=== PATIENT | female | born 1945 | race Caucasian/White ===

== ENCOUNTER → 2017-10-23 08:26 | Outpatient (CLI) | payer MEDICARE, OTHER, SELFPAY ==
--- NOTE | 2017-10-23 08:31 | RAD_ITS ---
STUDY: X-RAY - ESOPHAGUS (BARIUM SWALLOW) WITH FLUOROSCOPY REASON FOR EXAM: Female, 72 years old. Dysphagia for solids and tablets. TECHNIQUE: 15 view(s) of the esophagus were obtained following swallowing of barium. FLUOROSCOPY TIME (if supplied): (0:26) minutes/seconds COMPARISON: None. FINDINGS: There is no demonstrated esophageal foreign body. There is no demonstrated stricture or mucosal abnormality. Normal gastroesophageal junction, without a demonstrated hiatal hernia. The patient ingested a 12 mm tablet of barium. The tablet is trapped at the gastroesophageal junction. There is atherosclerotic tortuosity of the aortic arch and descending thoracic aorta. Normal visualized pulmonary parenchyma. Normal visualized osseous structures of the thorax. RAD/Esophagus Only IMPRESSION: The 12 mm tablet of barium is trapped at the gastroesophageal junction. Electronically Signed: Carlitos Gordon MD at 9:12 EST Tel [phone], Service support ,
== END ==
PROVIDERS: Family Provider Family Medicine; PCP Family Medicine; Visit Provider Otolaryngology
DX: R13.10 Dysphagia, unspecified (principal)
CPT/HCPCS: 74220

== ENCOUNTER → 2017-10-27 13:06 | Outpatient (CLI) | payer MEDICARE, OTHER, SELFPAY ==
--- NOTE | 2017-10-27 13:10 | RAD_ITS ---
STUDY: SWALLOWING STUDY REASON FOR EXAM: Female, 72 years old. Dysphasia. TECHNIQUE: The examination was performed with Speech Pathology in attendance. Under fluoroscopic observation, the patient ingested thin barium, thick barium, barium pudding, and barium coated cracker. FLUOROSCOPY TIME: 1:27 minutes/seconds. 845 spot images were obtained. RADIOLOGIST INVOLVEMENT: Radiologist was present and providing direct supervision. COMPARISON: None. FINDINGS: The following was observed during swallowing of the various mixtures of barium: Thin Barium: There was no evidence of aspiration or laryngeal penetration. Barium Pudding: There was no evidence of aspiration or laryngeal penetration. Barium Coated Cracker: There was no evidence of aspiration or laryngeal penetration. RAD/Swallowing Function w/Video IMPRESSION: Normal tailored barium swallow study. No evidence of increased risk for aspiration. The swallow study findings were discussed with the patient by the speech pathologist at the conclusion of the examination. Please see speech pathology report for more information and recommendations. Electronically Signed: Carlitos Gordon MD at 14:32 EST Tel [phone], Service support ,
--- NOTE | 2017-10-27 13:30 | SP.MBSS_ITS ---
PRIMARY / SECONDARY DIAGNOSIS: dysphagia (R13.10) REFERRING PHYSICIAN: Dr. Jai Breaux MD CURRENT DIET: regular textures, thin liquids DENTITION: WFL MENTAL STATUS: WNL RESPIRATORY STATUS: O2 via room air PREVIOUS MODIFIED BARIUM SWALLOW STUDY: none REASON FOR REFERRAL: Patient is a 72 year old female referred for a modified barium swallow (MBS) study to objectively assess the Patients oropharyngeal swallow function under fluoroscopy secondary to reported difficulty with PO medication administration, with the Patient reporting feelings of esophageal stasis during deglutition of multiple pills, occasional occurrences with solid textures, though has subsided prior to assessment. 10/23/2017 barium swallow study revealed trapping of the 12 mm barium tablet at the gastroesophageal junction. MEDICAL HISTORY: Gastroesophageal reflux disease, hypertension STUDY FINDINGS: Patient participated in a Modified Barium Swallow (MBS) study on 10/27/2017. Dr. Gordon was the radiologist present for this evaluation. This study was recorded in the lateral view and images were sent to PACs for storage. The following consistencies were presented to this patient for analysis of oropharyngeal swallow function: thin liquids, pudding, and a regular textured, Tomeka Doone cookie. Results of the MBS are as follows: PENETRATION / ASPIRATION SCALE (COLEY): 1 = does not enter airway 2 = enters airway/above vocal folds/ejected 3 = enters airway/above vocal folds/not ejected 4 = enters airway/contacts vocal folds/ejected 5 = enters airway/contacts vocal folds/not ejected 6 = enters airway/below vocal folds/ejected 7 = enters airway/below vocal folds/not ejected despite effort 8 = enters airway/below vocal folds/no effort PENETRATION / ASPIRATION SCALE (SCORE): Thin liquids via cup (single sip): 1 Thin liquids via cup (single sip): 1 Thin liquids via cup (sequential swallows): 1 Thin liquids via straw (single sip): 1 Thin liquids via straw (sequential swallows): 1 Pudding via spoon: 1 Regular textured cookie: 1 Thin liquids via straw (sequential swallows): 1 IMPRESSION: DIAGNOSIS: within functional limits ORAL PHASE CHARACTERIZED BY: LABIAL SEAL: no labial escape TONGUE CONTROL DURING BOLUS MANIPULATION: cohesive bolus between tongue to palatal seal BOLUS PREPARATION / MASTICATION: timely and efficient chewing and mashing BOLUS TRANSPORT / LINGUAL MOTION: brisk tongue motion ORAL RESIDUE: intermittent trace residue lining oral structures PHARYNGEAL PHASE CHARACTERIZED BY: INITIATION OF PHARYNGEAL SWALLOW: bolus head intermittently between the pyriforms and the posterior laryngeal surface of epiglottis at first hyoid excursion during thin liquid intake; bolus head in valleculae at first hyoid excursion across remaining trials. SOFT PALATE ELEVATION: no bolus between soft palate and pharyngeal wall LARYNGEAL ELEVATION: complete superior movement of thyroid cartilage with complete approximation of arytenoids cartilage to epiglottic petiole ANTERIOR HYOID EXCURSION: complete anterior movement EPIGLOTTIC MOVEMENT: complete epiglottic inversion LARYNGEAL VESTIBULE CLOSURE AT HEIGHT OF SWALLOW: complete laryngeal vestibule closure with no air/contrast in laryngeal vestibule PHARYNGEAL STRIPPING WAVE: pharyngeal stripping wave present / complete PHARYNGOESOPHAGEAL SEGMENT OPENING: complete distension and complete duration with no obstruction of flow TONGUE BASE RETRACTION: no contrast between tongue base and posterior pharyngeal wall PHARYNGEAL RESIDUE: intermittent trace residue within or on pharyngeal structures ESOPHAGEAL PHASE CHARACTERIZED BY: ESOPHAGEAL BOLUS CLEARANCE IN THE UPRIGHT POSITION: could not view EFFECTS OF TREATMENT STRATEGIES ATTEMPTED: Reduced bolus size = effective DIET TEXTURE RECOMMENDATIONS: Will recommend a regular textured, thin liquid diet. COMPENSATORY STRATEGIES RECOMMENDED: Reduced bolus volume INTERPRETATION OF RESULTS: Patient presents with swallow function grossly within functional limits. Noted pharyngeal phase impairments (delayed pharyngeal swallow onset timing) ameliorated with reduction in bolus volume, not outside normal limitations with comparison to age matched peers. RECOMMENDATIONS: Patient able to comprehend information presented upon review and express recommended intake precautions (reduced bolus volume) to suggest high likelihood of compliance. Provided brief overview of signs and symptoms of aspiration, with recommendations for the Patient to further discuss symptoms with PCP. No further skilled speech-language services warranted at this time targeting dysphagia. ADDITIONAL COMMENTS/RECOMMENDATIONS: Results and recommendations were discussed with the Patient immediately following MBS completion, with the Patient verbalizing understanding and agreement with all recommendations and education provided. IMAGE COUNT: 845 G-CODES: SWALLOWING G8996 Current Status: SWALLOWING G8997 Goal Status: SWALLOWING G8998 Discharge Status:
== END ==
PROVIDERS: Family Provider Family Medicine; PCP Family Medicine; Visit Provider Otolaryngology
DX: R13.10 Dysphagia, unspecified (principal)
CPT/HCPCS: 74230; 92611; G8996; G8997; G8998

== ENCOUNTER 2022-11-19 01:20 | Emergency (ER) | payer MEDICARE, OTHER, SELFPAY ==
[2022-11-19 01:20] VITALS: BP 104/70; PULSE 107; RESP 16; TEMP 36.6; O2SAT 97; BMI 24.3
--- NOTE | 2022-11-19 01:38 | EDS_ITS ---
HPI History of Present Illness Chief Complaint: Nausea/Vomiting/Diarrhea Informant: patient Narrative Narrative: Patient presents with nausea vomiting and diarrhea. She states this started Friday morning. She saw urgent care where it looks like she was prescribed Zofran. She has taken 2 of these. She did not think they helped a lot with nausea. She evidently saw her primary physician. She was placed on Phenergan which has helped a bit. She vomited a lot on Friday but much less since. She is still having diarrhea that is somewhat watery or poorly formed. She was taking Imodium which helped a little bit. She has not seen blood in the diarrhea. She gets intermittent abdominal cramping but has no real pain. She has no pain now. No flank pain. She denies urinary symptoms. She has history of frequent UTIs but does not feel as though she has one now. Patient did just get back from a cruise that went to the [facility] in [facility]. 5 or 6 other women that went with her all ended up getting COVID but this patient does not think she got COVID. She tested Friday morning and it was negative. I did do not know if the other people had nausea vomiting diarrhea symptoms. Patient has no history of any abdominal surgery. She has never had a fever with this. It sounds like the trend is toward improvement but her symptoms are still going on. PFSH PFSH Home Medications aspirin 81 mg chewable tablet 81 mg PO DAILY 08/24/16 [History Last Taken Unknown] celecoxib 200 mg capsule (Celebrex) 250 mg PO DAILY 08/24/16 [History Last Taken Unknown] cholecalciferol (vitamin D3) 25 mcg (1,000 unit) capsule (Vitamin D3) 1,000 unit PO DAILY 08/24/16 [History Last Taken Unknown] glucosamine sulf dipotassium Cl 250 mg-chondroitin sulf 200 mg capsule 1 ea PO DAILY 08/24/16 [History Last Taken Unknown] omeprazole magnesium 20 mg tablet,delayed release (Prilosec OTC) 20 mg PO DAILY 08/24/16 [History Last Taken Unknown] oxycodone-acetaminophen 5 mg-325 mg tablet 1 - 2 tab PO Q4H PRN PRN Pain ##15 08/24/16 [Rx Last Taken Unknown] valsartan 160 mg tablet 160 mg PO DAILY 08/24/16 [History Last Taken Unknown] Allergy/AdvReac Type Severity Reaction Status Date / Time No Known Allergies Allergy Verified 11/19/22 01:23 Social History Smoking Status: Current every day smoker tobacco type: cigarettes ROS ROS ED Constitutional Constitutional ED: Denies fever(s) or subjective ENT ENT ED: Denies rhinorrhea or sore throat Cardiovascular Cardiovascular: Denies chest pain or palpitations Respiratory/Chest Respiratory/Chest: Denies cough or dyspnea Gastrointestinal Gastrointestinal: Reports abdominal pain, diarrhea, nausea and vomiting; Denies constipation or melena Genitourinary Genitourinary ED: Denies dysuria, hematuria or urinary frequency Musculoskeletal Musculoskeletal: Reports myalgias Integumentary Denies Abrasions or rash Neurologic Neurologic: Denies paresthesias or weakness Endocrine Endocrinology: Denies polydipsia or polyuria Hematologic/Lymphatic Hematologic/Lymphatic: Reports other Details: Patient takes 1 baby aspirin every other day. ; Denies easy bleeding or easy bruising Allergic/Immunologic Allergic/Immunologic ED: Denies urticaria EXAM Physical Exam Narrative Exam Narrative: Patient is awake alert no acute distress. She is sitting comfortably on bed. She does not look toxic. HEENT shows no trauma. Mucous membranes might be just minimally dry. Eyes show no icterus or pallor Lungs are clear bilaterally Heart is regular without murmur gallop or rub. Heart rates only about 90 at this time. Abdomen is soft, does have increased bowel sounds but no distention. There is no tenderness anywhere on exam. I feel no hernias or mass. shows no CVA or suprapubic tenderness Extremities show no swelling or tenderness or asymmetry. Skin shows no rash pallor or diaphoresis. Neurologically she is awake alert and appropriate. Const Vital Signs: 11/19/22 01:20 Temperature 97.8 F Temperature Source Temporal Pulse Rate 107 H Respiratory Rate 16 Blood Pressure 104/70 Blood Pressure Mean 81 Pulse Ox 97 Oxygen Delivery Method Room Air MDM MDM MDM Narrative Medical decision making narrative: Patient CBC shows no abnormalities. Electrolytes are normal other than mild elevation in BUN and creatinine consistent with some mild dehydration. This was treated with IV fluids. Liver function test are overall unremarkable. Nonspecific elevation of the calcium and glucose. Urinalysis was clear negative leukocyte Estrace negative nitrites and the patient has no symptoms of UTI. We are pending the micro but the patient wants to go home now. Her influenza test was positive for influenza B. This is consistent with having some nausea and vomiting and diarrhea early in the illness. My suspicion is that she is getting near the end of this. She has meds for the diarrhea and nausea at home. Patient does not want to stay here any longer. She wants to go home pronto. She will be discharged to follow-up with her physician. Lab Data Attestation: I reviewed the patient's lab results. Labs: Laboratory Results - last 24 hr 11/19/22 11/19/22 11/19/22 01:55 01:55 02:50 WBC 10.9 RBC 4.77 Hgb 13.9 Hct 44.4 MCV 93.1 MCH 29.1 MCHC 31.3 L RDW Std Deviation 44.4 H RDW Coeff of Parisa 13.0 Plt Count 265 MPV 11.1 Immature Gran % (Auto) 0.400 Neut % (Auto) 74.7 H Lymph % (Auto) 15.2 L [place] % (Auto) 8.1 Eos % (Auto) 1.2 Baso % (Auto) 0.4 Absolute Neuts (auto) 8.2 H Absolute Lymphs (auto) 1.66 Nucleated RBC % 0 Sodium 136 Potassium 4.1 Chloride 104 Carbon Dioxide 25.0 Anion Gap 7 BUN 20 H Creatinine 1.13 H Estim Creat Clear Calc 37.15 Est GFR (MDRD) Af Amer 60 Est GFR (MDRD) Non-Af 50 L BUN/Creatinine Ratio 17.7 Glucose 110 H Calcium 10.5 H Total Bilirubin 0.50 AST 11 L ALT 15 Alkaline Phosphatase 126 H Total Protein 6.8 Albumin 3.3 Globulin 3.5 Albumin/Globulin Ratio 0.9 Urine Color Yellow Urine Clarity Clear Urine pH 6.5 Ur Specific [place] 1.010 Urine Protein Negative Urine Glucose (UA) Normal Urine Ketones Negative Urine Occult Blood Negative Urine Nitrite Negative Urine Bilirubin Negative Urine Urobilinogen Normal Ur Leukocyte Esterase Negative Discharge Plan Triage Chief Complaint: Nausea/Vomiting/Diarrhea ED Provider: Cuba Gonzales Dx/Rx/DC Orders Clinical Impression: Influenza B, Nausea vomiting and diarrhea, Mild dehydration Instructions: ED Dehydration (Adult), ED Influenza (Adult) Prescriptions: No Action celecoxib [Celebrex] 200 mg capsule 250 mg PO DAILY Label Comments: aspirin 81 mg Tab.Chew 81 mg PO DAILY Label Comments: valsartan 160 mg tablet 160 mg PO DAILY Label Comments: cholecalciferol (vitamin D3) [Vitamin D3] 1,000 unit capsule 1,000 unit PO DAILY Label Comments: omeprazole magnesium [Prilosec OTC] 20 mg Tablet.Dr 20 mg PO DAILY Label Comments: glucosamine jarvis 2KCl-chondroit 1 EACH capsule 1 ea PO DAILY oxycodone-acetaminophen 1 TABLET tablet 1 - 2 tab PO Q4H PRN PRN (Reason: Pain) Qty: 15 0RF Primary Care Provider: Care Physician,No Primary Referrals: Dawson Calvillo DO [Non-Staff] - 3-5 Days if not improving Disposition Disposition: Home, Self Care
[2022-11-19] MEDS: 0.9% Normal Saline 1,000 ML 1000 ML IV (01:51)
[2022-11-19] MEDS: Ondansetron 4 MG/2 ML Vial IV (01:51)
[2022-11-19 02:02] LABS: Absolute Lymphocyte Count 1.66 X10^3/uL (0.83-4.51); Absolute Neutrophil Count 8.2 X10^3/uL (2.0-7.7); Basophil# 0.04 X10^3/uL; Basophil% 0.4 % (0-1); Eosinophil# 0.13 X10^3/uL; Eosinophils% 1.2 % (0-5); Hematocrit 44.4 % (37-47); Hemoglobin 13.9 g/dL (12.0-15.0); Lymphocyte # 1.66 X10^3/ul (0.83-4.51); Lymphocyte % 15.2 % (19-41); Mean Corp Hgb Conc 31.3 g/dL (32-36); Mean Corpuscular Hgb 29.1 pg (27.0-32.0); Mean Corpuscular Volume 93.1 fL (81-99); Mean Platelet Vol. 11.1 fl (6.2-12.0); Monocyte# 0.88 X10^3/uL; Monocyte% 8.1 % (0-10); NRBC Flagged by Analyzer 0 % (0-5); Neutrophil # 8.17 X10^3/uL (2.7-7.7); Neutrophil % 74.7 % (47-70); Platelet Count 265 K/mm3 (150-450); RBC Distribution Width SD 44.4 fl (35.1-43.9); Red Blood Count 4.77 M/mm3 (4.2-5.4); White Blood Count 10.9 K/mm3 (4.4-11.0)
[2022-11-19 02:25] LABS: ALB/GLOB Ratio 0.9 RATIO (0.9-2.4); AST(SGOT) 11 U/L (15-37); Alanine Aminotransfer ALT/SGPT 15 U/L (13-56); Albumin, Serum 3.3 g/dL (3.2-5.0); Alkaline Phosphatase 126 U/L (45-117); Anion Gap 7 (5-15); BUN 20 mg/dL (7-18); BUN/Creat Ratio 17.7 RATIO (10-20); Calcium,Total 10.5 mg/dL (8.5-10.1); Chloride 104 mmol/L (98-107); Creatinine, Serum 1.13 mg/dL (0.55-1.02); EST Glomerular Filtration Rate 50 mL/min (>60); Est Glom Filt Rate - Afr Amer 60 mL/min (>60); Estimated Creatinine Clearance 37.15 ml/min; Globulin 3.5 g/dL (2.2-4.2); Glucose 110 mg/dL (74-106); Potassium 4.1 mmol/L (3.5-5.1); Protein, Total 6.8 g/dL (6.4-8.2); Sodium Level 136 mmol/L (136-145)
[2022-11-19 04:00] VITALS: BP 129/72; PULSE 76; RESP 18; O2SAT 98
== END 2022-11-19 04:01 | disposition home or self-care (01) ==
PROVIDERS: Emergency Provider Emergency Medicine; Visit Provider Emergency Medicine
DX: J10.1 Influenza due to other identified influenza virus with other respiratory manifestations (principal); R11.2 Nausea with vomiting, unspecified; R19.7 Diarrhea, unspecified; E86.0 Dehydration; F17.210 Nicotine dependence, cigarettes, uncomplicated
CPT/HCPCS: 80053; 81001; 85025; 87428; 96361; 96374; 99283; J7030; A4216; J2405

== ENCOUNTER → 2023-04-22 | Outpatient (CLI) | payer MEDICARE, OTHER, SELFPAY ==
--- NOTE | 2023-04-22 12:16 | US_ITS ---
STUDY: RENAL ULTRASOUND - COMPLETE REASON FOR EXAM: Female, 77 years old. UTI TECHNIQUE: Ultrasound evaluation of the kidneys was performed with real-time and static lo-scale imaging. COMPARISON: None. FINDINGS: limited by bowel gas. RIGHT KIDNEY: Normal location of the right kidney, which is normal in size. The right kidney measures 10.1 x 4.0 x 3.8 cm. There is a normal cortex of the right kidney. The renal cortex measures 1.1 cm. There is no right renal mass or cyst. There are no right renal calculi. There is no right hydronephrosis. DISTAL RIGHT URETER: There is non-visualization of the distal right ureter. There is no demonstrated right ureterovesical junction calculus. There is no demonstrated right ureteral jet. LEFT KIDNEY: Normal location of the left kidney, which is normal in size. The left kidney measures 10.2 x 4.8 x 4.5 cm. There is a normal cortex of the left kidney. The renal cortex measures 1.2 cm. There is no left renal mass or cyst. There are no left renal calculi. There is no left hydronephrosis. DISTAL LEFT URETER: There is non-visualization of the distal left ureter. There is no demonstrated left ureterovesical junction calculus. There is no demonstrated left ureteral jet. BLADDER: The urinary bladder is not distended. There is a normal wall thickness of the distended urinary bladder. There is no demonstrated mass within the urinary bladder. There are no demonstrated bladder calculi. US/Kidney and Bladder IMPRESSION: Limited by bowel gas. No definite abnormality seen. Electronically Signed: Doug May MD at 18:55 EDT ,
== END | disposition home or self-care (01) ==
LOC: US 12:16
PROVIDERS: PCP Nurse Practitioner Family; Referring Provider Urology; Visit Provider Urology
DX: N39.0 Urinary tract infection, site not specified (principal)
CPT/HCPCS: 76770

== ENCOUNTER → 2023-09-17 | Outpatient (CLI) | payer MEDICARE, OTHER, SELFPAY ==
[2023-09-17 10:12] LABS: Bacteria 0 SEEN /hpf (None Seen); Mucous, Urine 0 SEEN /hpf (<or=2+); Red Blood Cells-Urine 0 SEEN /hpf (0-5)
[2023-09-17 10:21] LABS: Color, Urine Yellow (Yellow); Glucose, Dipstick Normal (Normal); Ketone-Dipstick Negative (Negative); Leukocyte Esterase-Dipstick 25 /ul (Negative); Nitrite-Dipstick Negative (Negative); Occult Blood-Urine Negative /ul (Negative); Protein-Dipstick Negative (Negative); Urine Bilirubin Dipstick Negative (Negative); Urine Clarity Clear (Clear); Urine Urobilinogen Normal (Normal); Urine pH 6.5 (5.0 - 8.0)
[2023-09-17 10:36] LABS: Squamous Epithelial Cells - UA 0-5 SEEN /hpf (5-10); White Blood Cells 0-5 SEEN /hpf (0-5)
== END | disposition home or self-care (01) ==
LOC: LABSPEC 10:05
PROVIDERS: PCP Nurse Practitioner Family; Referring Provider Physician Assistant Surgical; Visit Provider Physician Assistant Surgical
DX: R30.0 Dysuria (principal)
CPT/HCPCS: 81001; 87086; 87088

== ENCOUNTER 2023-09-24 17:40 | Emergency (ER) | payer MEDICARE, OTHER, SELFPAY ==
[2023-09-24 17:41] VITALS: BP 109/78; PULSE 96; RESP 16; TEMP 36.1; O2SAT 100; BMI 26.2
[2023-09-24 18:10] LABS: Absolute Lymphocyte Count 2.28 X10^3/uL (0.83-4.51); Absolute Neutrophil Count 6.4 X10^3/uL (2.0-7.7); Basophil# 0.08 X10^3/uL; Basophil% 0.8 % (0-1); Eosinophils% 3.1 % (0-5); Hematocrit 48.4 % (37-47); Hemoglobin 15.3 g/dL (12.0-15.0); Lymphocyte # 2.28 X10^3/ul (0.83-4.51); Lymphocyte % 23.2 % (19-41); Mean Corp Hgb Conc 31.6 g/dL (32-36); Mean Corpuscular Hgb 29.3 pg (27.0-32.0); Mean Corpuscular Volume 92.7 fL (81-99); Mean Platelet Vol. 11.4 fl (6.2-12.0); Monocyte# 0.75 X10^3/uL; Monocyte% 7.6 % (0-10); NRBC Flagged by Analyzer 0 % (0-5); Neutrophil # 6.37 X10^3/uL (2.7-7.7); Neutrophil % 64.9 % (47-70); Platelet Count 262 K/mm3 (150-450); RBC Distribution Width CV 13.3 % (11.6-14.6); RBC Distribution Width SD 45.1 fl (35.1-43.9); Red Blood Count 5.22 M/mm3 (4.2-5.4); White Blood Count 9.8 K/mm3 (4.4-11.0)
[2023-09-24] MEDS: 0.9% Normal Saline (1000mL) 1,000 ML 1000 ML IV (18:13)
[2023-09-24 18:22] LABS: Anion Gap 1 (5-15); BUN 18 mg/dL (7-18); BUN/Creat Ratio 20.3 RATIO (10-20); Calcium,Total 10.8 mg/dL (8.5-10.1); Chloride 109 mmol/L (98-107); Creatinine, Serum 0.89 mg/dL (0.55-1.02); EST Glomerular Filtration Rate 66 mL/min (>60); Est Glom Filt Rate - Afr Amer 80 mL/min (>60); Estimated Creatinine Clearance 42.53 ml/min; Glucose 88 mg/dL (74-106); Potassium 4.4 mmol/L (3.5-5.1); Sodium Level 140 mmol/L (136-145)
--- OUTSIDE RECORDS SUMMARY | 2023-09-24 18:22 | XMS RPT_ITS | CCD ---
Author Name Unknown Address [address] [place] [address] Organization [facility] Care Team Providers Care Application Design Engineer Name Role Phone ADILSON RODGERS APRN, CNP Primary Care Phys ician Jeannine Salcedo MD Unavailable Gwendolyn Gasca DO Primary Care Provider RASHEED DOUGHERTY Attending Unava ilADILSON Angulo APRN, CNP Primary Care U navailable ADILSON RODGERS APRN, CNP Attending U navailable ADILSON RODGERS APRN, CNP Primary Care U navailable TRAM Felix CNP, ADILSON Reece Attending U juana Felix CNP, ADILSON Reece Primary Care U GWENDOLYN Galvan Primary Care Unavailable GWENDOLYN GASCA Primary Care Unavailable GWENDOLYN GASCA Primary Care Unavailable Medications Current Medications Medication Drug Class(es) Dates Sig (Normalized) Sig (Original) aspirin 81 mg delayed release oral tablet (10 sources) Platelet Aggregation Inhibitor, Nonsteroidal Anti-inflammatory Drug Start: 04-04-2018 aspirin 81 mg oral delayed release tablet Dose : 81 mg = 1 tab(s), Oral, qDay, # 30 tab(s), 0 Refill(s) Start Date: 04/04/18 Status: Ordered Completed/Discontinued Medications Medication Drug Class(es) Dates Sig (Normalized) Sig (Original) cholecalciferol, vitamin D3, (VITAMIN D3 ORAL) (5 sources) cholecalciferol, vitamin D3, (VITAMIN D3 ORAL) Take by mouth. 0 Active Problems Active Problems Problem Classification Problem Date Documented Da te Episodic/Chronic Anxiety disorders (2 sources) Generalized anxiety disorder 04-11-2022 Chronic Chronic kidney disease (5 sources) Chronic kidney disease stage 3; Translations: [Chronic kidney disease, stage 3 unspecified] 03-05-2021 Chronic Essential hypertension (8 sources) Hypertensive disorder 02-11-2020 Chronic Headache; including migraine (4 sources) Migraine with aura 09-28-2020 Chronic Hypertension with complications and secondary hypertension (1 source) Chronic kidney disease due to hypertension; Translations: [Hypertensive chronic kidney disease with stage 1 through stage 4 chronic kidney disease, or unspecified chronic kidney disease] Chronic Intestinal infection (1 source) Viral gastroenteritis; Translations: [Viral intestinal infection, unspecified] Episodic Nausea and vomiting (1 source) Nausea; Translations: [Nausea] Episodic Nutritional deficiencies (5 sources) Vitamin D deficiency; Translations: [Vitamin D deficiency, unspecified] 06-03-2019 Chronic Osteoarthritis (8 sources) Osteoarthritis of left knee joint; Translations: [Osteoarthritis of right knee joint] 06-03-2019 Chronic Other circulatory disease (4 sources) H/O: hypertension 11-28-2021 Episodic Other connective tissue disease (4 sources) H/O: arthritis 11-28-2021 Episodic Other connective tissue disease (1 source) Flexor tenosynovitis of finger; Translations: [Synovitis and tenosynovitis, unspecified] Onset: 2 12-28-2021 Episodic Other endocrine disorders (5 sources) Primary hyperparathyroidism; Translations: [Primary hyperparathyroidism] Onset: 1 03-04-2011 Chronic Other gastrointestinal disorders (4 sources) History of gastroesophageal reflux disease 11-28-2021 Episodic Other nutritional; endocrine; and metabolic disorders (4 sources) Hypercalcemia 03-05-2021 Chronic Other nutritional; endocrine; and metabolic disorders (4 sources) Body mass index 25-29 - overweight 11-28-2021 Episodic Other nutritional; endocrine; and metabolic disorders (4 sources) Overweight 06-03-2019 Episodic Other screening for suspected conditions (not mental disorders or infectious disease) (1 source) Procedure carried out on subject; Translations: [Encounter for screening for lipoid disorders] Episodic Residual codes; unclassified (4 sources) Postmenopausal state 02-20-2021 Episodic Spondylosis; intervertebral disc disorders; other back problems (1 source) Acute low back pain; Translations: [Acute midline low back pain without sciatica] Episodic Substance-related disorders (4 sources) Tobacco dependence syndrome 11-28-2021 Chronic Thyroid disorders (5 sources) Multinodular goiter; Translations: [Nontoxic multinodular goiter] Onset: 1 03-04-2011 Chronic Unclassified (20 sources) Patient encounter status 02-20-2021 Unclassified (4 sources) Screening status 06-03-2019 Unclassified (1 source) Vaccination needed 12-20-2021 Urinary tract infections (4 sources) Chronic cystitis 11-27-2020 Chronic Urinary tract infections (4 sources) Urinary tract infectious disease; Translations: [Recurrent urinary tract infection] 11-28-2021 Episodic Past or Other Problems Problem Classification Problem Date Documented Da te Episodic/Chronic Unclassified (1 source) Problem Results Test Name Value Interpretation Reference Range Facil ity Vital Signs Date Time Vital Sign Value Performing Clinician Facility 03-18-2023 07:14-0400 Body temperature 96.91 [degF] Sanchez Gardner TOP DISTRIBUTION EXECUTIVE.NURSING ATTENDANT Work Phone: [facility] 03-18-2023 07:14-0400 Body weight 63.5 kg Sanchez Gardner TOP DISTRIBUTION EXECUTIVE.NURSING ATTENDANT Work Phone: [facility] 03-18-2023 07:14-0400 Diastolic blood pressure 74 mm[Hg] Sanchez Calvolyla TOP DISTRIBUTION EXECUTIVE.NURSING ATTENDANT Work Phone: [facility] 03-18-2023 07:14-0400 Heart rate 72 /min Sanchezabraham Calvolyla TOP DISTRIBUTION EXECUTIVE.NURSING ATTENDANT Work Phone: [facility] 03-18-2023 07:14-0400 Respiratory rate 16 /min Sanchez Calvolyla TOP DISTRIBUTION EXECUTIVE.NURSING ATTENDANT Work Phone: [facility] 03-18-2023 07:14-0400 SaO2% (BldA) [Mass fraction] 97 % Sanchez Gardner TOP DISTRIBUTION EXECUTIVE.NURSING ATTENDANT Work Phone: [facility] 03-18-2023 07:14-0400 Systolic blood pressure 138 mm[Hg] Sanchez Gardner TOP DISTRIBUTION EXECUTIVE.NURSING ATTENDANT Work Phone: [facility] 11-17-2022 10:09-0500 Body temperature 97.81 [degF] Christiane Praisler-Wood TOP DISTRIBUTION EXECUTIVE.NURSING ATTENDANT Work Phone: [facility] 11-17-2022 10:09-0500 Body weight 63.96 kg Christiane Praisler-Wood TOP DISTRIBUTION EXECUTIVE.NURSING ATTENDANT Work Phone: [facility] 11-17-2022 10:09-0500 Diastolic blood pressure 62 mm[Hg] Christiane Praisler-Wood TOP DISTRIBUTION EXECUTIVE.NURSING ATTENDANT Work Phone: [facility] 11-17-2022 10:09-0500 Heart rate 111 /min Christiane Praisler-Wood TOP DISTRIBUTION EXECUTIVE.NURSING ATTENDANT Work Phone: [facility] 11-17-2022 10:09-0500 Respiratory rate 18 /min Christiane Praisler-Wood TOP DISTRIBUTION EXECUTIVE.NURSING ATTENDANT Work Phone: [facility] 11-17-2022 10:09-0500 SaO2% (BldA) [Mass fraction] 98 % Christiane Praisler-Wood TOP DISTRIBUTION EXECUTIVE.NURSING ATTENDANT Work Phone: [facility] 11-17-2022 10:09-0500 Systolic blood pressure 98 mm[Hg] Christiane Praisler-Wood TOP DISTRIBUTION EXECUTIVE.NURSING ATTENDANT Work Phone: [facility] 10-18-2022 14:04-0500 Body temperature 98.2 [degF] Socorro Athy PA-C Work Phone: [facility] 10-18-2022 14:04-0500 Body weight 64.23 kg Socorro Athy PA-C Work Phone: [facility] 10-18-2022 14:04-0500 Diastolic blood pressure 78 mm[Hg] Socorro Athy PA-C Work Phone: [facility] 10-18-2022 14:04-0500 Heart rate 81 /min Socorro Athy PA-C Work Phone: [facility] 10-18-2022 14:04-0500 Respiratory rate 18 /min Socorro Athy PA-C Work Phone: [facility] 10-18-2022 14:04-0500 SaO2% (BldA) [Mass fraction] 100 % Socorro Crooks PA-C Work Phone: [facility] 10-18-2022 14:04-0500 Systolic blood pressure 128 mm[Hg] Socorro Crooks PA-C Work Phone: [facility] NEGATED: Highlighted [id number] 13:05-0400 Body height 162.56 cm Janet Bagleyarchie AT [facility] Work Phone: NEGATED: Highlighted [id number] 13:05-040 Body height 163 cm Janet Arizmendimian AT [facility] Work Phone: NEGATED: Highlighted [id number] 13:05-0400 Body mass index (BMI) [Ratio] 24.63 kg/m2 Janet Bagleyarchie AT [facility] Work Phone: NEGATED: Highlighted [id number] 13:05-0400 Body weight 64.86 kg Janet Arizmendimian AT [facility] Work Phone: NEGATED: Highlighted [id number] 13:05-0400 Body weight 65 kg Janet Reeder AT [facility] Work Phone: Encounters Encounter Date Encounter Type Care Provider Facility Start: 03-20-2023 Telephone encounter Christiane Andrea APRN.CNP Work Phone: [facility] Procedures Date Procedure Procedure Detail Performing Clinician Start: 03-18-2023 Urnls dip stick/tabl et rgnt auto w/o microscopy Christiane Velez APRN.CNP Work Phone: Start: 10-18-2022 Urnls dip stick/tabl et rgnt auto w/o microscopy Socorro Crooks PA-C Work Phone: Start: 12-28-2021 End: 12-28-2021 Betamethasone acet&sod phosp Jeannine Salcedo MD Work Phone: Start: 12-28-2021 End: 12-28-2021 BP scrn no perf at interval Jeannine Salcedo MD Work Phone: Start: 12-28-2021 End: 12-28-2021 Docrev cur meds by tomas Salcedo MD Work Phone: Start: 12-28-2021 End: 12-28-2021 Injection 1 tendon sheath/ligament aponeurosis Jeannine Salcedo MD Work Phone: Start: 12-28-2021 End: 12-28-2021 Pain doc pos and plan Jeannine Salcedo MD Work Phone: Start: 12-28-2021 End: 12-28-2021 Patient encounter procedure Jeannine Salcedo MD Work Phone: Start: 12-28-2021 End: 12-28-2021 Pt scrnd tobacco use rcvd tobacco cessation talk Jeannine Salcedo MD Work Phone: Start: 06-12-2016 Cystoscopy RAS[facility]ED [facility] TOP DISTRIBUTION EXECUTIVE-NURSING ATTENDANT Start: 07-31-2007 Cystoscopy RASHEED [facility] TOP DISTRIBUTION EXECUTIVE-NURSING ATTENDANT Arthroplasty of knee SANCHEZ SIMPSON MD Cystoscopy SANCHEZ SIMPSON MD Ligation of fallopia n tube SANCHEZ SIMPSON MD Repair of shoulder SANCHEZ HARP MD Tonsillectomy SANCHEZ SIMPSON MD NEGATED: Highlighted rowStart: 12-28-2021 End: 12-28-2021 Documentation of current medications Janet BULLARD NEGATED: Highlighted rowStart: 12-28-2021 End: 12-28-2021 Smoking cessation education Janet BULLARD Plan of Treatment Date Care Activity Detail Author Start: 10-18-2022 End: 12-18-2022 Bacteria identified in Urine by Culture [facility] Work Phone: Immunizations Immunization Date Immunization Notes Care Provider Fa cility 12-20-2021 pneumococcal polysaccharide vaccine, 23 valent; Translations: [Pneumovax 23] ADILSON MINPKINS TOP DISTRIBUTION EXECUTIVE - NURSING ATTENDANT [facility] 07-18-2021 SARS-CoV-2 (COVID-19 ) mRNA-1273 vaccine ADILSON MINPKINS TOP DISTRIBUTION EXECUTIVE - NURSING ATTENDANT [facility] Payers Date Payer Category Payer Medicare MEDICARE MEDICAR E A AND B [id number] 2012-Present [phone] [address] [address] [place] [address] Medicare [id number] 2012 Medicare [id number] 2008 Unknown [facility] [id number] 2008-Present [phone] [address] [address] [place] [address] Indemnity [id number] 2008 Unknown [id number] 1947 Unknown [id number] 1945 Unknown [id number] 1945 Unknown [id number] Social History Date Type Detail Facility Start: 02-20-2021 Light tobacco smoker (lyle glaser) [facility] Clinical Notes 10-18-2022 to 03-20-2023 Telephone Encounter - Elena Flores LPN - 03/20/2023 9:36 AM EDTTelephone Encounter - Christiane Velez APRN.ALVERTO - 03/20/2023 8:53 AM EDTSanchez Gardner APRN.ALVERTO - 03/18/2023 7:20 AM EDT Note Date & Type Note Facility 03-20-2023 Miscellaneous Notes Phone call placed patient advised (see prior provider encounter) Patient verbalized understanding, agreed with plan of care to start new ATB, d/c prior Macrobid. Elena Flores LPN I attempted to reach patient to discuss her urine culture results. No answer, left message. The urine culture shows resistance to the antibiotic she was prescribed. I sent a new prescription for Cipro to her pharmacy. She should stop taking the macrobid. Christiane Velez APRN.ALVERTO documented in this encounter [facility] 03-18-2023 Note HNO ID: [id number] Author: Sanchez Gardner APRN.ALVERTO Service: ? Author Type: Nurse Practitioner Type: Progress Notes Filed: 03/18/2023 7:34 AM Note Text: Subjective HPI Nontoxic-appearing female presents urgent care chief complaint possible UTI. Duration of symptoms 10 days. Associated symptoms lower abdominal pain frequency. Patient states she has some intermittent lower back pain as well. History of chronic UTIs. This feels similar. Has not use any OTC medications. Is currently on 250 mg of Keflex once daily if for recurrent UTIs by urology. Presents today for evaluation. Denies any vaginal discharge urological abnormalities vaginal pain. Denies any fever body aches chills productive cough chest pain shortness of breath pleuritic pain hemoptysis nausea vomiting abdominal pain change in bowel or bladder habits. Past medical history prescription medication use and allergies reviewed. .Patient presents with: Low Back Pain: lower abdominal pain x 10 days PAST MEDICAL HISTORY Diagnosis Date Hyperparathyroidism (HCC) Hypertension Multinodular goiter Recurrent UTI PAST SURGICAL HISTORY Procedure Laterality Date ARTHRP KNE CONDYLEANDPLATU MEDIALANDLAT COMPARTMENTS Left SHOULDER SURGERY HX bilateral partial shoulder replacement ALLERGIES Patient has no known allergies. MEDICATIONS ondansetron orally disintegrating (ZOFRAN ODT) 4 mg disintegrating tablet Take 1 tablet by mouth every 6 hours as needed for nausea/vomiting. celecoxib (CELEBREX ORAL) Take by mouth. cholecalciferol, vitamin D3, (VITAMIN D3 ORAL) Take by mouth. glucosamine sulfate (GLUCOSAMINE ORAL) Take by mouth. cephALEXin (KEFLEX) 250 mg capsule TAKE ONE CAPSULE BY MOUTH EVERY DAY AT BEDTIME naproxen sodium (ANAPROX) 220 mg tablet Take 220 mg by mouth. Aspirin 81 mg ORAL Tab Take 81 mg by mouth once daily. omeprazole (PRILOSEC) 20 mg capsule Take 20 mg by mouth once daily. valsartan (DIOVAN) 160 mg tablet Take 160 mg by mouth once daily. ofloxacin (FLOXIN) 0.3 % otic solution Use 5 Drops in the right ear once daily. (Patient not taking: No sig reported) History reviewed. No pertinent family history. Social History Tobacco Use Smoking status: Some Days Smokeless tobacco: Never Substance Use Topics Alcohol use: Yes BP 138/74 Pulse 72 Temp 36.1 ?C (96.9 ?F) Resp 16 Wt 63.5 kg (140 lb) SpO2 97% Review of Systems Constitutional: Negative for chills, fever and malaise/fatigue. HENT: Negative for congestion, ear discharge, ear pain, sinus pain and sore throat. Eyes: Negative for blurred vision, pain, discharge and redness. Respiratory: Negative for cough, hemoptysis, sputum production, shortness of breath, wheezing and stridor. Cardiovascular: Negative for chest pain. Gastrointestinal: Negative for abdominal pain, diarrhea, nausea and vomiting. Genitourinary: Positive for frequency. Negative for dysuria, flank pain, hematuria and urgency. Musculoskeletal: Negative for myalgias. Skin: Negative for itching and rash. Neurological: Negative for dizziness and headaches. Objective Physical Exam Constitutional: General: She is not in acute distress. Appearance: She is not diaphoretic. HENT: Head: Normocephalic. Eyes: Conjunctiva/sclera: Conjunctivae normal. Pupils: Pupils are equal, round, and reactive to light. Cardiovascular: Rate and Rhythm: Normal rate and regular rhythm. Heart sounds: Normal heart sounds. Pulmonary: Effort: Pulmonary effort is normal. No tachypnea, accessory muscle usage or respiratory distress. Breath sounds: Normal breath sounds. No stridor. No wheezing, rhonchi or rales. Abdominal: General: There is no distension. Palpations: Abdomen is soft. Tenderness: There is no abdominal tenderness. There is no right CVA tenderness, left CVA tenderness, guarding or rebound. Musculoskeletal: Cervical back: Normal range of motion. No edema or erythema. No pain with movement. Normal range of motion. Skin: General: Skin is warm and dry. Neurological: Mental Status: She is alert and oriented to person, place, and time. ASSESSMENT/PLAN: 1. Acute midline low back pain without sciatica - ICD9: 724.2, ICD10: M54.50 (primary diagnosis) - UA DIP, URINE (POC) - URINE CULTURE 2. Recurrent UTI - ICD9: 599.0, ICD10: N39.0 - URINE CULTURE Urine positive for nitrites. With patient's symptoms and history of recurrent UTIs placed on Macrobid. Denies any known kidney disease. Patient will contact urology to see if she can discontinue Keflex while on Macrobid. Red flags prompt reevaluation discussed. Patient was educated on supportive therapies. Patient will follow up with primary care provider as needed. Patient was instructed to immediately proceed to emergency room for any new, worsening, or symptoms lasting longer than anticipated. The patient's clinical presentation is otherwise unremarkable at this time. Based on exam and cl (more content not included)... [facility] 03-18-2023 History of Present illness Narrative Subjective HPI Nontoxic-appearing female presents urgent care chief complaint possible UTI. Duration of symptoms 10 days. Associated symptoms lower abdominal pain frequency. Patient states she has some intermittent lower back pain as well. History of chronic UTIs. This feels similar. Has not use any OTC medications. Is currently on 250 mg of Keflex once daily if for recurrent UTIs by urology. Presents today for evaluation. Denies any vaginal discharge urological abnormalities vaginal pain. Denies any fever body aches chills productive cough chest pain shortness of breath pleuritic pain hemoptysis nausea vomiting abdominal pain change in bowel or bladder habits. Past medical history prescription medication use and allergies reviewed. .Patient presents with: Low Back Pain: lower abdominal pain x 10 days PAST MEDICAL HISTORY Diagnosis Date Hyperparathyroidism (HCC) Hypertension Multinodular goiter Recurrent UTI PAST SURGICAL HISTORY Procedure Laterality Date ARTHRP KNE CONDYLE&PLATU MEDIAL&LAT COMPARTMENTS Left SHOULDER SURGERY HX bilateral partial shoulder replacement ALLERGIES Patient has no known allergies. MEDICATIONS ondansetron orally disintegrating (ZOFRAN ODT) 4 mg disintegrating tablet Take 1 tablet by mouth every 6 hours as needed for nausea/vomiting. celecoxib (CELEBREX ORAL) Take by mouth. cholecalciferol, vitamin D3, (VITAMIN D3 ORAL) Take by mouth. glucosamine sulfate (GLUCOSAMINE ORAL) Take by mouth. cephALEXin (KEFLEX) 250 mg capsule TAKE ONE CAPSULE BY MOUTH EVERY DAY AT BEDTIME naproxen sodium (ANAPROX) 220 mg tablet Take 220 mg by mouth. Aspirin 81 mg ORAL Tab Take 81 mg by mouth once daily. omeprazole (PRILOSEC) 20 mg capsule Take 20 mg by mouth once daily. valsartan (DIOVAN) 160 mg tablet Take 160 mg by mouth once daily. ofloxacin (FLOXIN) 0.3 % otic solution Use 5 Drops in the right ear once daily. (Patient not taking: No sig reported) History reviewed. No pertinent family history. Social History Tobacco Use Smoking status: Some Days Smokeless tobacco: Never Substance Use Topics Alcohol use: Yes BP 138/74 Pulse 72 Temp 36.1 C (96.9 F) Resp 16 Wt 63.5 kg (140 lb) SpO2 97% Review of Systems Constitutional: Negative for chills, fever and malaise/fatigue. HENT: Negative for congestion, ear discharge, ear pain, sinus pain and sore throat. Eyes: Negative for blurred vision, pain, discharge and redness. Respiratory: Negative for cough, hemoptysis, sputum production, shortness of breath, wheezing and stridor. Cardiovascular: Negative for chest pain. Gastrointestinal: Negative for abdominal pain, diarrhea, nausea and vomiting. Genitourinary: Positive for frequency. Negative for dysuria, flank pain, hematuria and urgency. Musculoskeletal: Negative for myalgias. Skin: Negative for itching and rash. Neurological: Negative for dizziness and headaches. Objective Physical Exam Constitutional: General: She is not in acute distress. Appearance: She is not diaphoretic. HENT: Head: Normocephalic. Eyes: Conjunctiva/sclera: Conjunctivae normal. Pupils: Pupils are equal, round, and reactive to light. Cardiovascular: Rate and Rhythm: Normal rate and regular rhythm. Heart sounds: Normal heart sounds. Pulmonary: Effort: Pulmonary effort is normal. No tachypnea, accessory muscle usage or respiratory distress. Breath sounds: Normal breath sounds. No stridor. No wheezing, rhonchi or rales. Abdominal: General: There is no distension. Palpations: Abdomen is soft. Tenderness: There is no abdominal tenderness. There is no right CVA tenderness, left CVA tenderness, guarding or rebound. Musculoskeletal: Cervical back: Normal range of motion. No edema or erythema. No pain with movement. Normal range of motion. Skin: General: Skin is warm and dry. Neurological: Mental Status: She is alert and oriented to person, place, and time. ASSESSMENT/PLAN: 1. Acute midline low back pain without sciatica - ICD9: 724.2, ICD10: M54.50 (primary diagnosis) - UA DIP, URINE (POC) - URINE CULTURE 2. Recurrent UTI - ICD9: 599.0, ICD10: N39.0 - URINE CULTURE Urine positive for nitrites. With patient's symptoms and history of recurrent UTIs placed on Macrobid. Denies any known kidney disease. Patient will contact urology to see if she can discontinue Keflex while on Macrobid. Red flags prompt reevaluation discussed. Patient was educated on supportive therapies. Patient will follow up with primary care provider as needed. Patient was instructed to immediately proceed to emergency room for any new, worsening, or symptoms lasting longer than anticipated. The patient's clinical presentation is otherwise unremarkable at this time. Based on exam and clinical finding, the patient is stable for discharge. Plan of care was discussed with patient. Patient verbalizes understanding and agrees to plan of care. This note was generated using [employer] software. It may contain errors in wording, punctuation, or spelling. Sanchez Gardner APRN.ALVERTO documented in this encounter [facility] 11-17-2022 Note HNO ID: [id number] Author: Christiane Velez APRN.CNP Service: ? Author Type: Nurse Practitioner Type: Progress Notes Filed: 11/17/2022 10:49 AM Note Text: Subjective Diarrhea Pertinent negatives include no vomiting, no chills, no headaches, no myalgias and no cough. Aga Carrizales is a 77 year old female who presents with chills, nausea, vomiting and diarrhea for the past 2 days. Vomiting has resolved, she was able to eat an egg and toast this morning but still feels nauseated. She has not had a fever. She was recently on a [place] cruise and 5 friends with her tested positive for COVID, she had 2 tests on the ship and tested negative and tested at home 2 days ago and was negative. She has been taking imodium at home for diarrhea. Review of Systems Constitutional: Negative for chills and fever. HENT: Negative for congestion and sore throat. Respiratory: Negative for cough. Cardiovascular: Negative. Gastrointestinal: Positive for diarrhea and nausea. Negative for vomiting. Genitourinary: Negative for dysuria, frequency and urgency. Musculoskeletal: Negative for myalgias. Neurological: Negative for headaches. BP 98/62 Pulse 111 Temp 36.6 ?C (97.8 ?F) Resp 18 Wt 64 kg (141 lb) SpO2 98% PAST MEDICAL HISTORY Diagnosis Date Hyperparathyroidism (HCC) Hypertension Multinodular goiter Recurrent UTI PAST SURGICAL HISTORY Procedure Laterality Date ARTHRP KNE CONDYLEANDPLATU MEDIALANDLAT COMPARTMENTS Left SHOULDER SURGERY HX bilateral partial shoulder replacement ALLERGIES Patient has no known allergies. MEDICATIONS ondansetron orally disintegrating (ZOFRAN ODT) 4 mg disintegrating tablet Take 1 tablet by mouth every 6 hours as needed for nausea/vomiting. celecoxib (CELEBREX ORAL) Take by mouth. ofloxacin (FLOXIN) 0.3 % otic solution Use 5 Drops in the right ear once daily. (Patient not taking: No sig reported) cholecalciferol, vitamin D3, (VITAMIN D3 ORAL) Take by mouth. glucosamine sulfate (GLUCOSAMINE ORAL) Take by mouth. cephALEXin (KEFLEX) 250 mg capsule TAKE ONE CAPSULE BY MOUTH EVERY DAY AT BEDTIME naproxen sodium (ANAPROX) 220 mg tablet Take 220 mg by mouth. Aspirin 81 mg ORAL Tab Take 81 mg by mouth once daily. omeprazole (PRILOSEC) 20 mg capsule Take 20 mg by mouth once daily. valsartan (DIOVAN) 160 mg tablet Take 160 mg by mouth once daily. No family history on file. Social History Tobacco Use Smoking status: Some Days Smokeless tobacco: Never Substance Use Topics Alcohol use: Yes Objective Physical Exam Vitals and nursing note reviewed. Constitutional: General: She is not in acute distress. Appearance: Normal appearance. She is not ill-appearing or toxic-appearing. Cardiovascular: Rate and Rhythm: Normal rate and regular rhythm. Heart sounds: Normal heart sounds. Pulmonary: Effort: Pulmonary effort is normal. No respiratory distress. Breath sounds: Normal breath sounds. No wheezing or rales. Abdominal: General: Bowel sounds are normal. There is no distension. Palpations: Abdomen is soft. There is no mass. Tenderness: There is no abdominal tenderness. There is no guarding. Neurological: Mental Status: She is alert. ASSESSMENT/PLAN: 1. Nausea - ICD9: 787.02, ICD10: R11.0 (primary diagnosis) - ONDANSETRON 4 MG DISINTEGRATING TABLET 2. Viral gastroenteritis - ICD9: 008.8, ICD10: A08.4 - clear liquids x 8 hours then advance to BRAT diet as tolerated. - return or see PCP if diarrhea does not resolve in 3-5 days. - Follow-up with your PCP in 3-5 days if symptoms have not improved or sooner if symptoms worsen - Discussed red flags and need for immediate medical evaluation if any occur. - Discussed supportive care treatment with fluids, rest and analgesia. - Discussed expected course of illness Christiane Velez APRN.[facility] 11-17-2022 History of Present illness Narrative Subjective Diarrhea Pertinent negatives include no vomiting, no chills, no headaches, no myalgias and no cough. Aga Carrizales is a 77 year old female who presents with chills, nausea, vomiting and diarrhea for the past 2 days. Vomiting has resolved, she was able to eat an egg and toast this morning but still feels nauseated. She has not had a fever. She was recently on a [place] cruise and 5 friends with her tested positive for COVID, she had 2 tests on the ship and tested negative and tested at home 2 days ago and was negative. She has been taking imodium at home for diarrhea. Review of Systems Constitutional: Negative for chills and fever. HENT: Negative for congestion and sore throat. Respiratory: Negative for cough. Cardiovascular: Negative. Gastrointestinal: Positive for diarrhea and nausea. Negative for vomiting. Genitourinary: Negative for dysuria, frequency and urgency. Musculoskeletal: Negative for myalgias. Neurological: Negative for headaches. BP 98/62 Pulse 111 Temp 36.6 C (97.8 F) Resp 18 Wt 64 kg (141 lb) SpO2 98% PAST MEDICAL HISTORY Diagnosis Date Hyperparathyroidism (HCC) Hypertension Multinodular goiter Recurrent UTI PAST SURGICAL HISTORY Procedure Laterality Date ARTHRP KNE CONDYLE&PLATU MEDIAL&LAT COMPARTMENTS Left SHOULDER SURGERY HX bilateral partial shoulder replacement ALLERGIES Patient has no known allergies. MEDICATIONS ondansetron orally disintegrating (ZOFRAN ODT) 4 mg disintegrating tablet Take 1 tablet by mouth every 6 hours as needed for nausea/vomiting. celecoxib (CELEBREX ORAL) Take by mouth. ofloxacin (FLOXIN) 0.3 % otic solution Use 5 Drops in the right ear once daily. (Patient not taking: No sig reported) cholecalciferol, vitamin D3, (VITAMIN D3 ORAL) Take by mouth. glucosamine sulfate (GLUCOSAMINE ORAL) Take by mouth. cephALEXin (KEFLEX) 250 mg capsule TAKE ONE CAPSULE BY MOUTH EVERY DAY AT BEDTIME naproxen sodium (ANAPROX) 220 mg tablet Take 220 mg by mouth. Aspirin 81 mg ORAL Tab Take 81 mg by mouth once daily. omeprazole (PRILOSEC) 20 mg capsule Take 20 mg by mouth once daily. valsartan (DIOVAN) 160 mg tablet Take 160 mg by mouth once daily. No family history on file. Social History Tobacco Use Smoking status: Some Days Smokeless tobacco: Never Substance Use Topics Alcohol use: Yes Objective Physical Exam Vitals and nursing note reviewed. Constitutional: General: She is not in acute distress. Appearance: Normal appearance. She is not ill-appearing or toxic-appearing. Cardiovascular: Rate and Rhythm: Normal rate and regular rhythm. Heart sounds: Normal heart sounds. Pulmonary: Effort: Pulmonary effort is normal. No respiratory distress. Breath sounds: Normal breath sounds. No wheezing or rales. Abdominal: General: Bowel sounds are normal. There is no distension. Palpations: Abdomen is soft. There is no mass. Tenderness: There is no abdominal tenderness. There is no guarding. Neurological: Mental Status: She is alert. ASSESSMENT/PLAN: 1. Nausea - ICD9: 787.02, ICD10: R11.0 (primary diagnosis) - ONDANSETRON 4 MG DISINTEGRATING TABLET 2. Viral gastroenteritis - ICD9: 008.8, ICD10: A08.4 - clear liquids x 8 hours then advance to BRAT diet as tolerated. - return or see PCP if diarrhea does not resolve in 3-5 days. - Follow-up with your PCP in 3-5 days if symptoms have not improved or sooner if symptoms worsen - Discussed red flags and need for immediate medical evaluation if any occur. - Discussed supportive care treatment with fluids, rest and analgesia. - Discussed expected course of illness Christiane Velez APRN.[facility] documented in this encounter [facility] 11-17-2022 Instructions Christiane Velez APRN.CNP - 11/17/2022 10:28 AM EST ASSESSMENT/PLAN: 1. Nausea - ICD9: 787.02, ICD10: R11.0 (primary diagnosis) - ONDANSETRON 4 MG DISINTEGRATING TABLET 2. Viral gastroenteritis - ICD9: 008.8, ICD10: A08.4 - clear liquids x 8 hours then advance to BRAT diet as tolerated. - return or see PCP if diarrhea does not resolve in 3-5 days. - Follow-up with your PCP in 3-5 days if symptoms have not improved or sooner if symptoms worsen - Discussed red flags and need for immediate medical evaluation if any occur. - Discussed supportive care treatment with fluids, rest and analgesia. - Discussed expected course of illness Christiane Velez APRN.[facility] GASTROENTERITIS DESCRIPTION: Irritation and infection of the digestive tract that can often cause sudden and sometimes violent upsets. Gastroenteritis may be confused with spastic colitis. It affects all ages but is most severe in young children (1 to 5 years) and adults over 60. FREQUENT SIGNS AND SYMPTOMS: -Nausea that sometimes causes vomiting. -Diarrhea that ranges from 2 or 3 loose stools to many watery stools. -Abdominal cramps, pain or tenderness. -Appetite loss. -Fever. -Weakness. CAUSES: -A variety of viruses, bacteria or parasites that have contaminated food or water. -Food poisoning. -Use of harsh laxatives. -Change in bacteria that normally live in the intestinal tract. -Chemical toxins in certain plants, seafood, or contaminated food. -Heavy metal poisoning. RISK INCREASES WITH: -Adults over 60. -Newborns and infants. -Improper diet. -Excess alcohol consumption. -Use of drugs, such as aspirin, nonsteroidal anti-inflammatories, antibiotics, laxatives, cortisone or caffeine. -Travel to foreign countries. PREVENTIVE MEASURES: -Wash hands frequently if you or someone around you has gastroenteritis. -Avoid as many causes and risks mentioned above as possible. -Take care with food preparation. TREATMENT: GENERAL MEASURES: -Diagnostic tests may include laboratory studies of blood and stool. -Treatment is usually supportive (rest, fluids). -Mild cases are usually treated at home. -It is not necessary to isolate persons with gastroenteritis. -Hospitalization, if dehydration is severe. MEDICATIONS: -Medicine is usually not necessary. If gastroenteritis is severe or prolonged, you may be prescribed antinausea and antidiarrheal medication. -Certain bacteria and parasites may require specific antibiotic treatment. ACTIVITY: Rest in bed until nausea, vomiting, diarrhea and fever are gone. DIET: -Suck ice chips or drink small amounts of clear fluids frequently. -After diarrhea and vomiting stop, drink small amounts of clear liquids, such as tea, flat nigel silva or lemon-agdaagux soda, broth and gelatin. -If liquids are tolerated for 12 hours, eat small amounts of soft foods, such as cooked cereal, rice, eggs, custard, baked potato and yogurt. -If soft food is tolerated for 2 - 3 days, gradually return to a normal diet. Avoid alcohol, spicy food (pizza, spaghetti, onions), gravy raw vegetables, raw fruit, salad dressing, cream soup, coffee and milk for several days. NOTIFY OFFICE: -Symptoms of gastroenteritis persist longer than 2 days. -The following occur during treatment: Mucus or blood in the stool. Fever of 101 degrees F (38.3 degrees C) or higher. Abdominal swelling. Severe pain in the abdomen or rectum especially pain that begins in the center and moves to the lower right side. -Vomiting and diarrhea recur after treatment. -Signs of dehydration, such as dry mouth, wrinkled skin, excess thirst or decreased urination, develop. BRAT DIET (may eat any of the following as tolerated) Bananas Applesauce Niles Saltine Crackers Animal Crackers Pretzels Oatmeal Unsweetened Dry Cereal (Rice Krispies, Cheerios) Plain Baked or Boiled Potato Plain White Rice Plain Noodles All clear liquid listed below CLEAR LIQUID DIET (need to drink 2 ounces total every half hour) Broth Jello Popsicles Pedialyte Gatorade NO Juices NO Milk NO Dairy Products Call if urine output is decreased or she develops dry mucous membranes, or lethargy. documented in this encounter [facility] 10-20-2022 Miscellaneous Notes Patient notified. Verbalized understanding. Urine culture did not show evidence of clear bacterial infection. May continue antibiotics if symptoms are improving. Follow-up with PCP if symptoms do not resolve. Sanchez Gardner APRN.[facility] documented in this encounter [facility] 10-18-2022 Note HNO ID: [id number] Author: Socorro Crooks PA-C Service: ? Author Type: Physician Underwriting Director Type: Progress Notes Filed: 10/18/2022 4:31 PM Note Text: This note was created using Ombitronriter. Subjective Aga Carrizales is a 77 year old female. HPI Patient presents with possible UTI. She states she has had some fatigue lower back pain over the past 10 days. She has had some lower pelvic cramping as well. She denies any diarrhea or constipation. No blood in stool. She has a history of chronic UTIs and is on Keflex prophylactically every day. She does not typically get dysuria or frequency with her UTIs. Denies fever. No vomiting. No vaginal complaints. Review of Systems Constitutional: Positive for fatigue. Negative for fever. HENT: Negative. Respiratory: Negative. Cardiovascular: Negative. Gastrointestinal: Negative. Genitourinary: Positive for pelvic pain. Negative for dysuria, flank pain, frequency and urgency. Musculoskeletal: Positive for back pain. All other systems reviewed and are negative. PAST MEDICAL HISTORY Diagnosis Date Hyperparathyroidism (HCC) Hypertension Multinodular goiter Recurrent UTI Current Outpatient Medications Medication Sig Dispense Refill celecoxib (CELEBREX ORAL) Take by mouth. cholecalciferol, vitamin D3, (VITAMIN D3 ORAL) Take by mouth. glucosamine sulfate (GLUCOSAMINE ORAL) Take by mouth. cephALEXin (KEFLEX) 250 mg capsule TAKE ONE CAPSULE BY MOUTH EVERY DAY AT BEDTIME 3 naproxen sodium (ANAPROX) 220 mg tablet Take 220 mg by mouth. Aspirin 81 mg ORAL Tab Take 81 mg by mouth once daily. omeprazole (PRILOSEC) 20 mg capsule Take 20 mg by mouth once daily. valsartan (DIOVAN) 160 mg tablet Take 160 mg by mouth once daily. nitrofurantoin monohydrate and macrocrystal (MACROBID) 100 mg capsule Take 1 capsule by mouth twice daily with meals for 5 days. 10 capsule 0 ofloxacin (FLOXIN) 0.3 % otic solution Use 5 Drops in the right ear once daily. (Patient not taking: No sig reported) 1 Bottle 0 No current facility-administered medications for this visit. PAST SURGICAL HISTORY Procedure Laterality Date ARTHRP KNE CONDYLEANDPLATU MEDIALANDLAT COMPARTMENTS Left SHOULDER SURGERY HX bilateral partial shoulder replacement No family history on file. Social History Tobacco Use Smoking status: Some Days Smokeless tobacco: Never Substance Use Topics Alcohol use: Yes Objective BP 128/78 Pulse 81 Temp 36.8 ?C (98.2 ?F) Resp 18 Wt 64.2 kg (141 lb 9.6 oz) SpO2 100% Physical Exam Vitals reviewed. Constitutional: Appearance: Normal appearance. HENT: Head: Normocephalic and atraumatic. Cardiovascular: Rate and Rhythm: Normal rate and regular rhythm. Heart sounds: Normal heart sounds. Pulmonary: Effort: Pulmonary effort is normal. Breath sounds: Normal breath sounds. Abdominal: General: Abdomen is flat. Palpations: Abdomen is soft. Comments: Mild left suprapubic ttp. No guarding or rebound. Normal bowel sounds. Abdomen is soft and non distended. Musculoskeletal: Cervical back: Neck supple. Skin: General: Skin is warm and dry. Neurological: Mental Status: She is alert. Assessment and Plan ASSESSMENT/PLAN: 1. Recurrent UTI - ICD9: 599.0, ICD10: N39.0 acute - UA positive for melissa esterase - Send urine for culture - Begin treatment with Macrobid 100 mg BID for 5 days - UA DIP, URINE (POC) - URINE CULTURE Socorro Crooks PA-C [facility] 10-18-2022 History of Present illness Narrative This note was created using Ombitronriter. Subjective Aga Carrizales is a 77 year old female. HPI Patient presents with possible UTI. She states she has had some fatigue lower back pain over the past 10 days. She has had some lower pelvic cramping as well. She denies any diarrhea or constipation. No blood in stool. She has a history of chronic UTIs and is on Keflex prophylactically every day. She does not typically get dysuria or frequency with her UTIs. Denies fever. No vomiting. No vaginal complaints. Review of Systems Constitutional: Positive for fatigue. Negative for fever. HENT: Negative. Respiratory: Negative. Cardiovascular: Negative. Gastrointestinal: Negative. Genitourinary: Positive for pelvic pain. Negative for dysuria, flank pain, frequency and urgency. Musculoskeletal: Positive for back pain. All other systems reviewed and are negative. PAST MEDICAL HISTORY Diagnosis Date Hyperparathyroidism (HCC) Hypertension Multinodular goiter Recurrent UTI Current Outpatient Medications Medication Sig Dispense Refill celecoxib (CELEBREX ORAL) Take by mouth. cholecalciferol, vitamin D3, (VITAMIN D3 ORAL) Take by mouth. glucosamine sulfate (GLUCOSAMINE ORAL) Take by mouth. cephALEXin (KEFLEX) 250 mg capsule TAKE ONE CAPSULE BY MOUTH EVERY DAY AT BEDTIME 3 naproxen sodium (ANAPROX) 220 mg tablet Take 220 mg by mouth. Aspirin 81 mg ORAL Tab Take 81 mg by mouth once daily. omeprazole (PRILOSEC) 20 mg capsule Take 20 mg by mouth once daily. valsartan (DIOVAN) 160 mg tablet Take 160 mg by mouth once daily. nitrofurantoin monohydrate and macrocrystal (MACROBID) 100 mg capsule Take 1 capsule by mouth twice daily with meals for 5 days. 10 capsule 0 ofloxacin (FLOXIN) 0.3 % otic solution Use 5 Drops in the right ear once daily. (Patient not taking: No sig reported) 1 Bottle 0 No current facility-administered medications for this visit. PAST SURGICAL HISTORY Procedure Laterality Date ARTHRP KNE CONDYLE&PLATU MEDIAL&LAT COMPARTMENTS Left SHOULDER SURGERY HX bilateral partial shoulder replacement No family history on file. Social History Tobacco Use Smoking status: Some Days Smokeless tobacco: Never Substance Use Topics Alcohol use: Yes Objective BP 128/78 Pulse 81 Temp 36.8 C (98.2 F) Resp 18 Wt 64.2 kg (141 lb 9.6 oz) SpO2 100% Physical Exam Vitals reviewed. Constitutional: Appearance: Normal appearance. HENT: Head: Normocephalic and atraumatic. Cardiovascular: Rate and Rhythm: Normal rate and regular rhythm. Heart sounds: Normal heart sounds. Pulmonary: Effort: Pulmonary effort is normal. Breath sounds: Normal breath sounds. Abdominal: General: Abdomen is flat. Palpations: Abdomen is soft. Comments: Mild left suprapubic ttp. No guarding or rebound. Normal bowel sounds. Abdomen is soft and non distended. Musculoskeletal: Cervical back: Neck supple. Skin: General: Skin is warm and dry. Neurological: Mental Status: She is alert. Assessment and Plan ASSESSMENT/PLAN: 1. Recurrent UTI - ICD9: 599.0, ICD10: N39.0 acute - UA positive for melissa esterase - Send urine for culture - Begin treatment with Macrobid 100 mg BID for 5 days - UA DIP, URINE (POC) - URINE CULTURE Socorro Crooks PA-C documented in this encounter [facility] Evaluation + Plan note Future Appointments Appointment Date:03/28/2022 11:20:00 AM Scheduled Provider:ADILSON UGALDE APRN - [facility] Location:[facility] Appointment Type:PC OV Follow Up Appointment Date:12/09/2022 01:00:00 PM Scheduled Provider:SANCHEZ SIMPSON MD Location:UROLOGY Appointment Type:URO OV Future Scheduled TestsComplete Blood Count 03/28/22Lipid Profile 03/28/22Vitamin D Level 03/28/22Complete Metabolic Panel 03/28/22MA Mammo Screening Bilateral w/ Otto 02/20/21 [facility] Evaluation + Plan note Future Appointments Appointment Date:04/11/2022 09:40:00 AM Scheduled Provider:ADILSON UGALDE TOP DISTRIBUTION EXECUTIVE - NURSING ATTENDANT Location:[facility] Appointment Type:PC OV Follow Up Appointment Date:12/09/2022 01:00:00 PM Scheduled Provider:SANCHEZ SIMPSON MD Location:UROLOGY Appointment Type:URO OV [facility] Evaluation + Plan note Future Appointments Appointment Date:01/07/2023 01:00:00 PM Scheduled Provider:ADILSON UGALDE TOP DISTRIBUTION EXECUTIVE - NURSING ATTENDANT Location:[facility] Appointment Type:PC OV Appointment Date:02/03/2023 01:20:00 PM Scheduled Provider:RASHEED JUDD TOP DISTRIBUTION EXECUTIVE-NURSING ATTENDANT Location:UROLOGY Appointment Type:URO OV 20 min Future Scheduled TestsH pylori Antigen, Stool 11/20/22Giardia Antigen 11/20/22Stool Culture 11/20/22Complete Blood Count 10/12/22Complete Blood Count 11/20/22Vitamin D Level 10/12/22Complete Metabolic Panel 10/12/22Complete Metabolic Panel 11/20/22 [facility] Evaluation + Plan note Future Appointments Appointment Date:02/02/2024 01:40:00 PM Scheduled Provider:RASHEED JUDD Location:UROLOGY Appointment Type:URO OV 20 min Future Scheduled TestsH pylori Antigen, Stool 11/20/22Giardia Antigen 11/20/22Stool Culture 11/20/22Complete Blood Count 10/12/22Complete Blood Count 11/20/22Albumin/Creatinine Ratio, Random Urine 07/09/23Vitamin D Level 07/09/23Vitamin D Level 10/12/22Complete Metabolic Panel 07/09/23Complete Metabolic Panel 10/12/22Complete Metabolic Panel 11/20/22 [facility] Evaluation note There may be informa tion available, but it has not been provided by the sender. [facility] Work Phone: [facility] Diagnosis Nausea- Primary Nausea alone Viral gastroenteritis Intestinal infection due to other organism, not elsewhere classified [facility] Diagnosis Acute midline low back pain without sciatica- Primary Recurrent UTI Urinary tract infection, site not specified documented in this encounter [facility] course Narrative No data available for this section [facility] Hospital Discharge instructions No data available for this section [facility] InstructionsNo information available.[facility] Work Phone: Progress note No data available for this section [facility] Chief Complaint Chief Complaint Description Start Date right ring finger pain Preliminary chief co mplaint data, not yet signed by the author as of Advance Directives There may be information available, but it has not been provided by the sender. No Advanced Directives Records FoundNo Advanced Directives Records Found Family History There may be information available, but it has not been provided by the sender.No Family History Records FoundNo Family History Records Found Summary Purpose Additional Source Comments Reason for Visit (unrecogniz ed section and content) Reason Comments Urinary Problem Possible UTI, lower back pain x 10 days Reason Comments Results Reason Comments Diarrhea Vomiting, chills x2 days Reason Comments Low Back Pain lower abdominal pain x 10 days Care Team (unrecognized sect ion and content) Care Team Personnel Name: ADILSON UGALDE APRN - NURSING ATTENDANT Position: P4 Advanced Practice Nurse Med Service: Employed Provider Member Role: Primary Care Physician Address: Address: [address] [facility] [address] [place], [place] [id number] [place] [address] Care Team Related Persons Name: MARLENE GEORGE Source Comments (unrecognize d section and content) In the event this informatio n is protected by the Federal Confidentiality of Alcohol and Drug Abuse Patient Records regulations: The Federal rules restrict any use of the information to criminally investigate or prosecute any alcohol or drug abuse patient.[facility] the event this information is protected by the Federal Confidentiality of Alcohol and Drug Abuse Patient Records regulations: The Federal rules restrict any use of the information to criminally investigate or prosecute any alcohol or drug abuse patient.[facility] the event this information is protected by the Federal Confidentiality of Alcohol and Drug Abuse Patient Records regulations: The Federal rules restrict any use of the information to criminally investigate or prosecute any alcohol or drug abuse patient.[facility] the event this information is protected by the Federal Confidentiality of Alcohol and Drug Abuse Patient Records regulations: The Federal rules restrict any use of the information to criminally investigate or prosecute any alcohol or drug abuse patient.[facility] the event this information is protected by the Federal Confidentiality of Alcohol and Drug Abuse Patient Records regulations: The Federal rules restrict any use of the information to criminally investigate or prosecute any alcohol or drug abuse patient.[facility] Care Teams (unrecognized sec tion and content) Application Design Engineer Relationship Specialty Start Date End Date Gwendolyn Gasca, DO [address] [place] [address] PCP - General Family Medicine 12/07/18 Application Design Engineer Relationship Specialty Start Date End Date Gwendolyn Gasca, DO [address] [place] [address] PCP - General Family Medicine 12/07/18 Application Design Engineer Relationship Specialty Start Date End Date Gwendolyn Gasca, DO [address] [place] [address] PCP - General Family Medicine 12/07/18 INFORMATION SOURCE (unrecogn ized section and content) DATE CREATED AUTHOR AUTHOR'S ORGANIZ ATION 03/21/2023 [facility] FOR RECORDS PERTAINING TO PATIENTS WHO ARE OR HAVE BEEN ENROLLED IN A CHEMICAL DEPENDENCY/SUBSTANCEABUSE PROGRAM, SOME INFORMATION MAY BE OMITTED. This clinical summary was aggregated from multiple sources. Caution should be exercised in using it in the provision of clinical care. This summary normalizes information from multiple sources, and as a consequence, information in this document may materially change the coding, format and clinical context of patient data. In addition, data may be omitted in some cases. CLINICAL DECISIONS SHOULD BE BASED ON THE PRIMARY CLINICAL RECORDS. [employer] provides no warranty or guarantee of the accuracy or completeness of information in this document.
[2023-09-24 20:41] VITALS: BP 103/86; PULSE 76; RESP 18; O2SAT 96
--- NOTE | 2023-09-24 21:19 | EX.ED.DYSGE1 ---
HPI History of Present Illness Chief Complaint: Nausea/Vomiting/Diarrhea Detail of Chief Complaint: Abdominal pain with nausea and diarrhea that started today Informant: patient Onset/Context/Timing Onset: Today Context: Sudden Onset Timing: Intermittent and Waxes and wanes Quality: Achy Location: Lower quadrants Current Severity: Mild Maximum Severity: Moderate Worsened by: Diarrhea Relieved by: Nothing Associated Symptoms Associated Symptoms: Nausea. Recent antibiotics for UTI. Narrative Narrative: Patient is a 78-year-old woman who is recently on ciprofloxacin for urinary tract infection. She completed a course of antibiotics last week. She presents with diarrhea that started this morning. She has had 5+ loose stools. She denies blood or mucus. She has no history of inflammatory bowel disorder. She has no prior history of Pseudomonas under colitis, C. difficile. She denies fever or chills. She does endorse dry mouth and thirst. She denies orthostatic symptoms. The pain does not radiate. There is no associated urinary symptoms. She denies dark-colored urine. She denies decreased urine output. She does have history of dry eyes and dry mouth. She does have family history of Sjogren's disease. She has never been tested. She did have surgery for her dry eyes and is not on any eyedrops. Patient denies any skin lesions. Patient denies ill contacts. Prior similar symptoms: Yes Recent Illness/Hospitalization: No PFSH PFSH Home Medications aspirin 81 mg chewable tablet 81 mg PO DAILY 08/24/16 [History Last Taken Unknown] celecoxib 200 mg capsule (Celebrex) 250 mg PO DAILY 08/24/16 [History Last Taken Unknown] cholecalciferol (vitamin D3) 25 mcg (1,000 unit) capsule (Vitamin D3) 1,000 unit PO DAILY 08/24/16 [History Last Taken Unknown] glucosamine sulf dipotassium Cl 250 mg-chondroitin sulf 200 mg capsule 1 ea PO DAILY 08/24/16 [History Last Taken Unknown] omeprazole magnesium 20 mg tablet,delayed release (Prilosec OTC) 20 mg PO DAILY 08/24/16 [History Last Taken Unknown] oxycodone-acetaminophen 5 mg-325 mg tablet 1 - 2 tab PO Q4H PRN PRN Pain #15 tabs 08/24/16 [Rx Last Taken Unknown] valsartan 160 mg tablet 160 mg PO DAILY 08/24/16 [History Last Taken Unknown] Allergy/AdvReac Type Severity Reaction Status Date / Time No Known Allergies Allergy Verified 09/24/23 17:41 Social History (Updated 09/24/23 @ 21:[address] Conner Cuello MD) household members: none Smoking Status: Current some day smoker tobacco type: e-cigarettes alcohol intake: current substance use type: does not use ROS ROS ED Constitutional Constitutional ED: Denies chills, fever(s), subjective or weight loss Eyes Eyes: Denies blurry vision, change in vision or diplopia ENT ENT ED: Denies ear pain, rhinorrhea or sore throat Cardiovascular Cardiovascular: Denies chest pain or palpitations Respiratory/Chest Respiratory/Chest: Denies cough, dyspnea or dyspnea on exertion Gastrointestinal Gastrointestinal: Reports abdominal pain, diarrhea and nausea; Denies constipation, melena or vomiting Genitourinary Genitourinary ED: Denies dysuria, hematuria or urinary frequency Musculoskeletal Musculoskeletal: Denies arthralgias or myalgias Integumentary Denies rash Neurologic Neurologic: Denies headache(s), paresthesias or weakness Endocrine Endocrinology: Denies cold intolerance or heat intolerance Hematologic/Lymphatic Hematologic/Lymphatic: Reports systems reviewed and no addt'l complaints, except as documented EXAM Physical Exam Const Vital Signs: 09/24/23 17:41 09/24/23 20:41 Temperature 96.9 F L Temperature Source Temporal Pulse Rate 96 76 Respiratory Rate 16 18 Blood Pressure 109/78 103/86 H Blood Pressure Mean 88 91 Pulse Ox 100 96 Oxygen Delivery Method Room Air Room Air Positive well nourished and well developed General Appearance ED: well developed and NAD; Negative for cyanotic, diaphoretic or pallor HEENT Reports dry mucous membranes HEENT Narrative: Head is atraumatic and normocephalic. Ears normal. Nares patent. Mucosa is dry. Uvula is midline. There is no erythema or exudate. Mouth ED: Yes dry mucous membranes Mouth: dry mucous membranes Eyes PERRL and EOMs intact bilaterally General Eye ED: Negative for pale conjunctiva or scleral icterus Neck no lymphadenopathy, supple and no JVD Chest Wall inspection of chest normal and palpation of chest normal Resp normal respiratory effort and clear to auscultation bilaterally Cardio regular rate, regular rhythm, S1 normal heart sound, S2 normal heart sound and no murmurs GI normal to inspection, nondistended, normoactive bowel sounds, non-distended and no masses; Negative for non-tender or hepatosplenomegaly GI Narrative: Abdomen slightly tympanitic. Bowel sounds are diminished. Palpation: soft Back/Spine no CVA tenderness Thoracic Spine / Upper Back: Negative for thoracic spinal tenderness Lumbar Spine / Lower Back: Negative for lumbar spinal tenderness Extremity normal to inspection General Extremety ED: Negative for edema or tenderness General Extremity: Negative for edema Neuro oriented x3, CN's II-XII intact bilaterally and no sensory deficits noted Sensorium / Orientation: alert Psych mental status grossly normal Skin no rashes or lesions noted, no wounds and skin turgor normal General Skin Exam: elasticity normal; Negative for jaundice or pallor MDM MDM MDM Narrative Medical decision making narrative: With patient recently on antibiotics and having diarrhea need to consider Pseudomonas under colitis versus antibiotic induced diarrhea versus viral illness. Will obtain BMP to assess renal function CO2 anion gap and rule out hypokalemia. CBC to assess for anemia white count differential and also rule out eosinophilia which would raise concern for parasitic infection. Patient's not been able to give a stool specimen. She informed me that she had a bowel movement and it was formed. This would exclude similar center colitis. Suspect this is due to a viral illness. She was discharged home with appropriate home-going instructions. Lab Data Attestation: I reviewed the patient's lab results. Lab results narrative: CBC is unremarkable. BMP is unremarkable. Calcium is slightly low at 10.8. Labs: Laboratory Results - last 24 hr 09/24/23 18:00 WBC 9.8 RBC 5.22 Hgb 15.3 H Hct 48.4 H MCV 92.7 MCH 29.3 MCHC 31.6 L RDW Std Deviation 45.1 H RDW Coeff of [place] 13.3 Plt Count 262 MPV 11.4 Immature Gran % (Auto) 0.400 Neut % (Auto) 64.9 Lymph % (Auto) 23.2 [place] % (Auto) 7.6 Eos % (Auto) 3.1 Baso % (Auto) 0.8 Absolute Neuts (auto) 6.4 Absolute Lymphs (auto) 2.28 Nucleated RBC % 0 Sodium 140 Potassium 4.4 Chloride 109 H Carbon Dioxide 30.0 Anion Gap 1 L BUN 18 Creatinine 0.89 Estim Creat Clear Calc 42.53 Est GFR (MDRD) Af Amer 80 Est GFR (MDRD) Non-Af 66 BUN/Creatinine Ratio 20.3 H Glucose 88 Calcium 10.8 H Calcium in October was elevated 10.5. This does not require emergent follow-up/workup. Rhythm Strip Rhythm Strip: Sinus Rhythm Rate: 88 Ectopy: None Treatment and Re-Evaluation :: Patient was reassessed at 2121. She feels markedly better. She is now having formed stool. Should be discharged to home. Discharge Plan Triage Chief Complaint: Nausea/Vomiting/Diarrhea ED Provider: Conner Cuello Dx/Rx/DC Orders Clinical Impression: Diarrhea, Hypertension, Dehydration, mild, Abdominal pain, bilateral lower quadrant, Nausea Instructions: ED Diarrhea, Unknown Cause Prescriptions: No Action celecoxib [Celebrex] 200 mg capsule 250 mg PO DAILY Patient Comments: aspirin 81 mg tablet,chewable 81 mg PO DAILY Patient Comments: valsartan 160 mg tablet 160 mg PO DAILY Patient Comments: cholecalciferol (vitamin D3) [Vitamin D3] 1,000 unit capsule 1,000 unit PO DAILY Patient Comments: omeprazole magnesium [Prilosec OTC] 20 mg tablet,delayed release (DR/EC) 20 mg PO DAILY Patient Comments: glucosamine jarvis 2KCl-chondroit 1 EACH capsule 1 ea PO DAILY oxycodone-acetaminophen 1 TABLET tablet 1 - 2 tab PO Q4H PRN PRN (Reason: Pain) Qty: 15 0RF Primary Care Provider: Arden Cee NP Referrals: Arden Cee NP, CLAIMS ADJUSTER SUPERVISOR-C [Primary Care Provider] - 3-5 Days if not improving Disposition Disposition: Home, Self Care
== END 2023-09-24 21:50 | disposition home or self-care (01) ==
PROVIDERS: Emergency Provider Emergency Medicine; PCP Nurse Practitioner Family; Visit Provider Emergency Medicine
DX: R19.7 Diarrhea, unspecified (principal); R11.2 Nausea with vomiting, unspecified; F17.290 Nicotine dependence, other tobacco product, uncomplicated; E86.0 Dehydration; R10.32 Left lower quadrant pain; R10.31 Right lower quadrant pain; I10 Essential (primary) hypertension
CPT/HCPCS: 80048; 85025; 96360; 99282; A4216

== ENCOUNTER 2024-05-31 11:47 | Emergency (ER) | payer MEDICARE, OTHER, SELFPAY ==
[2024-05-31 11:48] VITALS: BP 112/92; PULSE 107; RESP 16; TEMP 36.8; O2SAT 96; BMI 26.7
--- NOTE | 2024-05-31 12:57 | EX.ED.DYSGE1 ---
HPI History of Present Illness Chief Complaint: General Illness PFSH [facility] Home Medications ?Medication ?Instructions ?Recorded ?Last Taken ?Type aspirin 81 mg chewable tablet 81 mg PO DAILY 08/24/16 Unknown History celecoxib 200 mg capsule (Celebrex) 250 mg PO DAILY 08/24/16 Unknown History cholecalciferol (vitamin D3) 25 1,000 unit PO DAILY 08/24/16 Unknown History mcg (1,000 unit) capsule (Vitamin D3) glucosamine sulf dipotassium Cl 1 ea PO DAILY 08/24/16 Unknown History 250 mg-chondroitin sulf 200 mg capsule omeprazole magnesium 20 mg 20 mg PO DAILY 08/24/16 Unknown History tablet,delayed release (Prilosec OTC) oxycodone-acetaminophen 5 mg-325 1 - 2 tab PO Q4H PRN PRN Pain #15 08/24/16 Unknown Rx mg tablet tabs valsartan 160 mg tablet 160 mg PO DAILY 08/24/16 Unknown History meloxicam 7.5 mg tablet 7.5 mg PO DAILY #14 tabs 05/31/24 Unknown Rx metoclopramide HCl 5 mg tablet 5 mg PO Q8H PRN PRN nausea and 05/31/24 Unknown Rx (Reglan) vomiting #10 tabs Allergy/AdvReac Type Severity Reaction Status Date / Time No Known Allergies Allergy Verified 05/31/24 11:53 Social History (Updated 09/24/23 @ 21:[address] Conner Cuello MD) household members: none Smoking Status: Current some day smoker tobacco type: e-cigarettes alcohol intake: current substance use type: does not use EXAM Physical Exam Const Vital Signs: 05/31/24 11:48 05/31/24 14:00 05/31/24 14:03 Temperature 98.2 F 98.1 F Temperature Source Temporal Temporal Pulse Rate 107 H 101 H Respiratory Rate 16 24 H Respiratory Effort Normal Blood Pressure 112/92 H 135/76 H Blood Pressure Mean 98 95 Pulse Ox 96 94 Oxygen Delivery Method Room Air 05/31/24 15:22 Temperature 98.6 F Temperature Source Oral Pulse Rate 99 Respiratory Rate 20 H Respiratory Effort Blood Pressure 125/67 H Blood Pressure Mean 86 Pulse Ox 98 Oxygen Delivery Method Room Air MDM MDM MDM Narrative Medical decision making narrative: HISTORY OF PRESENT ILLNESS: 78-year-old female presents concern for dyspnea with exertion and nausea chills and bodyaches. Notes headache since last night as well. Patient denies sudden onset or thunderclap headache, denies maximal intensity within 1 minute, vomiting, neck pain, stiffness, changes in vision, fever, history malignancy, syncope, or seizures associated with headache. The patient denies recent surgery in the last 4 weeks or immobilization in the last 3 days, denies previous diagnosis of DVT or PE, hemoptysis, unilateral leg swelling or malignancy with treatment the last 6 months or palliative. No estrogen use noted. REVIEW OF SYSTEMS: Pertinent positives: Headache, nausea, chills, body aches, shortness of breath Pertinent negatives: Chest pain, palpitations, fever PHYSICAL EXAM: Nursing triage notes reviewed, Vital signs reviewed Constitutional: please see mdm HENT: MMM Eyes: Pupils equal round and reactive to light, Extraocular muscles intact Neck: No stridor, no JVD, full neck ROM Lungs: Clear to auscultation, No wheezing or rales. No increased work of breathing, no conversational dyspnea, no accessory muscle use, no nasal flaring. No respiratory distress noted Heart: Regular rate and rhythm, No murmurs, No rubs and No gallops, 2+ distal pulses (radial, femoral, posterior tibial) in all extremities Abdomen: Soft, there is no tenderness, rigidity, rebound or guarding, no obvious peritoneal signs, no palpable pulsatile abdominal masses, no auscultated abdominal bruit : No CVAT Extremities: No edema, intact passive range of motion in all joints. Neuro: Alert and oriented x3, neuro exam at baseline, cranial nerves II through XII are intact. No pain with extraocular muscle movement. There is negative test of skew. 5 of 5 strength in upper and lower extremities in flexion extension. Intact sensation to light touch in upper and lower extremity dermatomes. No truncal or extremity ataxia. No dysdiadochokinesia. Normal gait. 2+ reflexes in upper and lower extremities. No meningeal signs. Negative Babinski. NIH of 0. Skin: No rash or lesions noted, no cellulitic changes noted, no abscesses noted MEDICAL DECISION MAKING: Chief Complaint: As per HPI External records reviewed: Reviewed prior ED records. Reviewed ED recommend febrile child 25 in which patient was diagnosed with influenza Factors affecting care: GERD Social determinants of health: none History obtained from others: none Consults: none [facility] Narrative: Patient was initially hemodynamically stable, tachycardic rate of 107 otherwise afebrile and nontoxic-appearing. Exam without focal neurologic deficits. No focal cardiopulmonary abnormality I considered the following differential diagnosis: COVID, flu, RSV, pneumonia, anemia, electro disturbance, intra-abdominal pathology, intracranial abnormality, pneumonia, sepsis, UTI. ALL IMAGES (IF OBTAINED) HAVE BEEN PERSONALLY REVIEWED AND INTERPRETED BY MYSELF. EKG was sinus tachycardia with a rate of 107, prolonged TX interval, first-degree AV block, normal axis, normal intervals, no STEMI CBC with marked leukocytosis of 28k suggestive of severe systemic inflammation, no significant anemia noted, no cytopenia BMP without evidence of significant electrolyte abnormalities, no anion gap, no acute kidney injury. No evidence of metabolic acidosis. LFTs show no evidence of hepatobiliary pathology. Urinalysis shows no evidence of urinary inflammation suggestive of UTI CT scan of the brain is negative for bleeding or mass CT scan of the abdomen pelvis is negative for intra-abdominal infection High-sensitivity troponin is negative, no evidence of myocardial ischemia Urinalysis shows no evidence of urinary inflammation suggestive of UTI Lactate is wnl indicating no end-organ hypoperfusion and/or hypoxia. Suggesting no sepsis Upon reassessment the patient's heart improved to 99. She continued to be afebrile. The synthesis of the patient's history, physical exam, labs images suggest no acute life or limb threat etiology. Her elevated white blood cell count remains unexplained we will have her follow with her primary care physician for repeat lab testing and further evaluation. I have a low suspicion for bacterial meningitis as the patient does not have any nuchal rigidity, jolt accentuation or signs of focal neurologic deficit. Indication for admission at this time. Low suspicion for bacteremia with afebrile, state, no persistent tachycardia, no source of infection, no anion gap, no metabolic acidosis or other signs consistent with bacteremia. No indication for antibiotics at this time. I gave strict return precautions and follow-up instructions. The patient and/or family, caregivers express understanding. The patient and/or family, caregivers agrees with the plan. Shared decision making: I will have a discussion with the patient and or visitors regarding risk/benefits of further testing or admission. They will be made aware of of the risk/benefits inherent in this decision they will be given the opportunity to voice understanding. I discussed admission for observation and to draw blood cultures, discussed lumbar puncture as well with the patient and friend. They were both alert and oriented x 3 and had capacity to make their own medical decisions and chose to forego additional testing/admission at this time and lieu of going home as he felt comfortable with her workup so far. Total critical care time today provided was at least 0 minutes. This excludes separately billable procedures. Critical care time (if documented) is secondary to the patient having high probability of clinically significant/life threatening deterioration in the patient's condition which required my urgent intervention. Impression: 1. Fatigue 2. Leukocytosis Dispo: Discharge home This note was generated with Piazza dictation software. It may contain incorrect words, spelling, and punctuation that were not noted in review of the chart prior to signing. Lab Data Labs: Laboratory Results - last 24 hr 05/31/24 05/31/24 05/31/24 13:51 14:56 15:20 WBC 28.3 H RBC 4.79 Hgb 13.8 Hct 43.2 MCV 90.2 MCH 28.8 MCHC 31.9 L RDW Std Deviation 44.3 H RDW Coeff of [place] 13.4 Plt Count 265 MPV 11.2 Immature Gran % (Auto) 0.800 Neut % (Auto) 86.7 H Lymph % (Auto) 4.8 L [place] % (Auto) 7.5 Eos % (Auto) 0.0 Baso % (Auto) 0.2 Absolute Neuts (auto) 24.5 H Absolute Lymphs (auto) 1.35 Nucleated RBC % 0 [address] Path Review May foll Sodium 137 Potassium 4.0 Chloride 103 Carbon Dioxide 27.0 Anion Gap 7 BUN 23 H Creatinine 0.88 Estim Creat Clear Calc 48.58 Est GFR (MDRD) Af Amer 81 Est GFR (MDRD) Non-Af 67 BUN/Creatinine Ratio 26.3 H Glucose 108 H Lactic Acid 1.1 Calcium 11.4 H Total Bilirubin 0.70 AST 12 L ALT 16 Alkaline Phosphatase 178 H Troponin I High Sens 12 Total Protein 6.7 Albumin 3.1 L Globulin 3.6 Albumin/Globulin Ratio 0.9 Urine Color Yellow Urine Clarity Sl. Cloudy Urine pH 6.0 Ur Specific [place] 1.020 Urine Protein 15 H Urine Glucose (UA) Normal Urine Ketones Negative Urine Occult Blood Negative Urine Nitrite Negative Urine Bilirubin Negative Urine Urobilinogen Normal Ur Leukocyte Esterase Negative Urine RBC 0 SEEN Urine WBC 0 SEEN Ur Squamous Epith Cells 0-5 SEEN Urine Bacteria 0 SEEN Urine Mucus 0 SEEN Radiography Diagnostic Testing: Clinical Impression(s) from Imaging Studies Brain CT 05/31/24 13:38 IMPRESSION: No acute intracranial process. Electronically Signed: Mir Lynne MD at 14:40 EDT , Chest X-Ray 05/31/24 14:14 IMPRESSION: No radiographic evidence of acute cardiopulmonary disease. Electronically Signed: Mir Lynne MD at 14:42 EDT , Abdomen/Pelvis CT 05/31/24 14:53 IMPRESSION: 1. Diverticulosis without evidence of acute diverticulitis. 2. Slightly prominent common bile duct and pancreatic duct without evidence of gallstones. Correlation with ultrasound might be of value. 3. Fecal retention concerning for constipation. Electronically Signed: Mir Lynne MD at 15:46 EDT , Discharge Plan Triage Chief Complaint: General Illness ED Provider: Lonnie Tineo Dx/Rx/DC Orders Clinical Impression: Fatigue Prescriptions: New metoclopramide HCl [Reglan] 5 mg tablet 5 mg PO Q8H PRN PRN (Reason: nausea and vomiting) Qty: 10 0RF meloxicam 7.5 mg tablet 7.5 mg PO DAILY Qty: 14 0RF No Action celecoxib [Celebrex] 200 mg capsule 250 mg PO DAILY Patient Comments: aspirin 81 mg tablet,chewable 81 mg PO DAILY Patient Comments: valsartan 160 mg tablet 160 mg PO DAILY Patient Comments: cholecalciferol (vitamin D3) [Vitamin D3] 1,000 unit capsule 1,000 unit PO DAILY Patient Comments: omeprazole magnesium [Prilosec OTC] 20 mg tablet,delayed release (DR/EC) 20 mg PO DAILY Patient Comments: glucosamine jarvis 2KCl-chondroit 1 EACH capsule 1 ea PO DAILY oxycodone-acetaminophen 1 TABLET tablet 1 - 2 tab PO Q4H PRN PRN (Reason: Pain) Qty: 15 0RF Primary Care Provider: Arden Cee NP Referrals: Arden Cee NP, WATCH ENGINE OPERATOR-C [Primary Care Provider] - Activity Restrictions/Additional Instructions: Thank you for trusting us with your care today! Please take Tylenol (2 pills, 650 mg), ibuprofen (2 pills, 400 mg) every 6 hours as needed for pain and fever control. Please take Reglan as prescribed and as needed for headache nausea or vomiting. Please return to the emergency department if your symptoms change or worsen. Please follow with your primary care physician for further outpatient evaluation and management. Print Language: [place] Disposition Disposition: Home, Self Care
--- NOTE | 2024-05-31 13:38 | CT_ITS ---
INDICATION: headache EXAMINATION: CT BRAIN - CT Head or Brain W/O Contrast Injection TECHNIQUE: Multiple axial images were obtained of the head without intravenous contrast. The protocol utilizes one or more of the following dose reduction techniques: automated exposure control, adjustment of mA and/or kV according to patient size,and/or use of iterative reconstruction technique. IV Contrast dosage and agent: None. RADIATION DOSAGE (If Supplied By Facility): CTDIvol = ( 44.99 ) mGy, DLP = ( 762.36 ) mGycm COMPARISON: No relevant prior comparison study available FINDINGS: BRAIN PARENCHYMA: No intra- or extra-axial hemorrhage. No evidence of acute infarct. No intracranial mass or mass effect. There is preservation of the gutierrez/white matter interface. Posterior fossa structures are unremarkable. Mild atherosclerotic calcifications of the cavernous internal carotid arteries. CSF SPACES: Appropriate for age. No hydrocephalus. Basal cisterns are patent. CALVARIUM, SKULL BASE, PARANASAL SINUSES AND MASTOID AIR CELLS: Clear. No discrete lytic or blastic abnormalities. ORBITS: Previous bilateral cataract surgery. ASPECTS Score for Acute Strokes: 10 CT/Brain/Head without Contrast IMPRESSION: No acute intracranial process. Electronically Signed: Mir Lynne MD at 14:40 EDT ,
--- NOTE | 2024-05-31 13:38 | EKG12_ITS ---
Test Reason : GENERAL Blood Pressure : / mmHG Vent. Rate : 107 BPM Atrial Rate : 107 BPM P-R Int : 210 ms QRS Dur : 080 ms QT Int : 322 ms P-R-T Axes : 057 020 033 degrees QTc Int : 429 ms Sinus tachycardia with 1st degree A-V block Otherwise normal ECG Confirmed by JANELL AMBROSIO, JESSICA ([id number]), web editor REDD MONTGOMERY ([id number]) on 06/03/2024 9:25:18 AM Referred By: Confirmed By:JESSICA MACIEL MD
[2024-05-31] MEDS: Acetaminophen 325 MG Tablet 650 MG PO (13:53)
[2024-05-31] MEDS: Metoclopramide 10 MG/2 ML Vial 5 MG IV (13:53)
[2024-05-31 14:00] VITALS: BP 135/76; PULSE 101; RESP 24; TEMP 36.7; O2SAT 94
[2024-05-31 14:06] LABS: Absolute Lymphocyte Count 1.35 X10^3/uL (0.83-4.51); Absolute Neutrophil Count 24.5 X10^3/uL (2.0-7.7); Basophil# 0.06 X10^3/uL; Basophil% 0.2 % (0-1); Eosinophil# 0.01 X10^3/uL; Hematocrit 43.2 % (37-47); Hemoglobin 13.8 g/dL (12.0-15.0); Lymphocyte # 1.35 X10^3/ul (0.83-4.51); Lymphocyte % 4.8 % (19-41); Mean Corp Hgb Conc 31.9 g/dL (32-36); Mean Corpuscular Hgb 28.8 pg (27.0-32.0); Mean Corpuscular Volume 90.2 fL (81-99); Mean Platelet Vol. 11.2 fl (6.2-12.0); Monocyte# 2.12 X10^3/uL; Monocyte% 7.5 % (0-10); NRBC Flagged by Analyzer 0 % (0-5); Neutrophil % 86.7 % (47-70); POSITIVE DIFFERENTIAL YES; Platelet Count 265 K/mm3 (150-450); RBC Distribution Width CV 13.4 % (11.6-14.6); RBC Distribution Width SD 44.3 fl (35.1-43.9); Red Blood Count 4.79 M/mm3 (4.2-5.4); White Blood Count 28.3 K/mm3 (4.4-11.0)
[2024-05-31 14:07] LABS: Differential Indicated SCAN CRITERIA MET
[2024-05-31] MEDS: 0.9% Normal Saline (500mL Bag) 500 ML 1000 ML IV (14:07)
--- NOTE | 2024-05-31 14:14 | RAD_ITS ---
INDICATION: Weakness EXAMINATION/TECHNIQUE: X-RAY - XR Chest 1 View COMPARISON: No relevant prior comparison study available FINDINGS: LINES/DEVICES: None. LUNGS: No consolidation, edema or effusion. No pneumothorax. MEDIASTINUM AND CARDIOVASCULAR STRUCTURES: Cardiac silhouette not enlarged. Central airways and mediastinal contour are unremarkable. BONES AND SOFT TISSUES: Bilateral shoulder arthroplasty. RAD/Chest 1 View (Portable) IMPRESSION: No radiographic evidence of acute cardiopulmonary disease. Electronically Signed: Mir Lynne MD at 14:42 EDT ,
[2024-05-31 14:24] LABS: ALB/GLOB Ratio 0.9 RATIO (0.9-2.4); AST(SGOT) 12 U/L (15-37); Alanine Aminotransfer ALT/SGPT 16 U/L (13-56); Albumin, Serum 3.1 g/dL (3.2-5.0); Alkaline Phosphatase 178 U/L (45-117); Anion Gap 7 (5-15); BUN 23 mg/dL (7-18); BUN/Creat Ratio 26.3 RATIO (10-20); Calcium,Total 11.4 mg/dL (8.5-10.1); Chloride 103 mmol/L (98-107); Creatinine, Serum 0.88 mg/dL (0.55-1.02); EST Glomerular Filtration Rate 67 mL/min (>60); Est Glom Filt Rate - Afr Amer 81 mL/min (>60); Estimated Creatinine Clearance 48.58 ml/min; Globulin 3.6 g/dL (2.2-4.2); Glucose 108 mg/dL (74-106); Protein, Total 6.7 g/dL (6.4-8.2); Sodium Level 137 mmol/L (136-145); Troponin-I HS 12 pg/mL (3.0-54.0)
--- NOTE | 2024-05-31 14:53 | CT_ITS ---
STUDY: CT ABDOMEN AND PELVIS WITH CONTRAST REASON FOR EXAM: Female, 78 years old. Abdominal pain RADIATION DOSAGE (If Supplied By Facility): CTDIvol = ( 14.9 ) mGy, DLP = ( 462.85 ) mGycm TECHNIQUE: IV 100mL [id number]-[id number] was administered. Transaxial images were obtained from the dome of the diaphragm to the symphysis pubis. Multiplanar coronal and sagittal images were reformatted. The protocol utilizes one or more of the following dose reduction techniques: automated exposure control, adjustment of mA and/or kV according to patient size,and/or use of iterative reconstruction technique. COMPARISON: No relevant prior comparison study available FINDINGS: The visualized lung bases are unremarkable. The visualized portions of the heart are within normal limits. Multiple cysts are seen in the liver, the largest is in the left lobe measuring about 2 cm. No evidence of gallstones. Slightly prominent common bile duct measuring up to 7 mm. Minimal prominence of the pancreatic duct. Otherwise unremarkable pancreas. Normal spleen. Normal bilateral adrenal glands. The stomach is not well distended. Normal in caliber small bowel loops. Fecal retention. Diverticulosis without evidence of acute diverticulitis. The appendix is visualized and appears normal. There is diffuse atherosclerotic calcification of the abdominal aorta, without a demonstrated aneurysm. No retroperitoneal adenopathy. Normal right kidney. Normal left kidney. Normal urinary bladder. Normal abdominal wall. There are diffuse degenerative changes of the visualized lumbar spine. CT/Abdomen/Pelvis W IV Cont ONLY IMPRESSION: 1. Diverticulosis without evidence of acute diverticulitis. 2. Slightly prominent common bile duct and pancreatic duct without evidence of gallstones. Correlation with ultrasound might be of value. 3. Fecal retention concerning for constipation. Electronically Signed: Mir Lynne MD at 15:46 EDT ,
[2024-05-31 15:00] LABS: Bacteria 0 SEEN /hpf (None Seen); Mucous, Urine 0 SEEN /hpf (<or=2+); Red Blood Cells-Urine 0 SEEN /hpf (0-5); White Blood Cells 0 SEEN /hpf (0-5)
[2024-05-31 15:02] LABS: Color, Urine Yellow (Yellow); Glucose, Dipstick Normal (Normal); Ketone-Dipstick Negative (Negative); Leukocyte Esterase-Dipstick Negative /ul (Negative); Nitrite-Dipstick Negative (Negative); Occult Blood-Urine Negative /ul (Negative); Protein-Dipstick 15 mg/dl (Negative); Urine Bilirubin Dipstick Negative (Negative); Urine Clarity Sl. Cloudy (Clear); Urine Urobilinogen Normal (Normal)
[2024-05-31 15:22] VITALS: BP 125/67; PULSE 99; RESP 20; TEMP 37; O2SAT 98
[2024-05-31 15:23] LABS: Squamous Epithelial Cells - UA 0-5 SEEN /hpf (5-10)
[2024-05-31 16:00] VITALS: BP 119/74; PULSE 90; RESP 18; TEMP 36.8; O2SAT 97
[2024-05-31 16:14] LABS: Lactic Acid 1.1 mmol/L (0.4-1.9)
[2024-06-01 11:36] LABS: Pathologist Review Reviewed
== END 2024-05-31 16:49 | disposition home or self-care (01) ==
PROVIDERS: Emergency Provider Emergency Medicine; PCP Nurse Practitioner Family; Visit Provider Emergency Medicine
DX: R53.83 Other fatigue (principal); R51.9 Headache, unspecified; I44.0 Atrioventricular block, first degree; K21.9 Gastro-esophageal reflux disease without esophagitis; D72.829 Elevated white blood cell count, unspecified; F17.290 Nicotine dependence, other tobacco product, uncomplicated; R06.02 Shortness of breath; K80.20 Calculus of gallbladder without cholecystitis without obstruction
CPT/HCPCS: 70450; 71045; 74177; 80053; 81001; 83605; 84484; 85025; 87631; 93005; 96361; 96374; 99284; J7030; Q9967; A4216

== ENCOUNTER 2025-05-12 14:44 | Emergency (ER) | payer MEDICARE, OTHER, SELFPAY ==
[2025-05-12 14:44] VITALS: BP 144/80; PULSE 107; RESP 14; TEMP 36.2; O2SAT 98; BMI 24.6
--- NOTE | 2025-05-12 15:02 | EX.ED.GENINJ ---
HPI <LILIYA Jo - Last Filed: 05/12/25 16:16> History of Present Illness Chief Complaint: Laceration Narrative Narrative: 79-year-old female had her trash can tipped on the side she was cleaning it out and states she must of tripped over the lid and struck her head on the edge of the plastic trash can sustaining a laceration to her left scalp. No LOC. She is on baby aspirin, no blood thinners. A nearby lawnmower assisted her up and she has been able to ambulate. She went inside and showered and presents for evaluation. She reports a headache over the area of the laceration but no visual changes or nausea or vomiting. She has scrapes over both lower extremities but denies pain or difficulty walking. PFSH <LILIYA Jo - Last Filed: 05/12/25 16:16> [facility] Home Medications ?Medication ?Instructions ?Recorded ?Last Taken ?Type aspirin 81 mg chewable tablet 81 mg PO DAILY 08/24/16 Unknown History celecoxib 200 mg capsule (Celebrex) 250 mg PO DAILY 08/24/16 Unknown History cholecalciferol (vitamin D3) 25 1,000 unit PO DAILY 08/24/16 Unknown History mcg (1,000 unit) capsule (Vitamin D3) glucosamine sulf dipotassium Cl 1 ea PO DAILY 08/24/16 Unknown History 250 mg-chondroitin sulf 200 mg capsule omeprazole magnesium 20 mg 20 mg PO DAILY 08/24/16 Unknown History tablet,delayed release (Prilosec OTC) oxycodone-acetaminophen 5 mg-325 1 - 2 tab PO Q4H PRN PRN Pain #15 08/24/16 Unknown Rx mg tablet tabs valsartan 160 mg tablet 160 mg PO DAILY 08/24/16 Unknown History meloxicam 7.5 mg tablet 7.5 mg PO DAILY #14 tabs 05/31/24 Unknown Rx metoclopramide HCl 5 mg tablet 5 mg PO Q8H PRN PRN nausea and 05/31/24 Unknown Rx (Reglan) vomiting #10 tabs Allergy/AdvReac Type Severity Reaction Status Date / Time No Known Allergies Allergy Verified 05/31/24 11:53 Social History (Updated 09/24/23 @ 21:[address] Conner Cuello MD) household members: none Smoking Status: Current some day smoker tobacco type: cigarettes and e-cigarettes alcohol intake: current substance use type: does not use ROS <LILIYA Jo - Last Filed: 05/12/25 16:16> ROS ED ROS Narrative Eyes: Negative for visual change. GI: Negative for nausea, vomiting. Neuro: Negative for headache. EXAM <LILIYA Jo - Last Filed: 05/12/25 16:16> Physical Exam Narrative Exam Narrative: CONST: Patient sitting in no acute distress. EYES: Normal inspection. PERRL, EOMI. HEAD: 6 centimeter linear laceration left frontotemporal forehead extending onto the temporal scalp down to the bone. No active bleeding, no hematoma, no deformity or crepitus. No raccoon eyes or León sign, no nasal septal hematoma, no hemotympanums, no CSF otorrhea or rhinorrhea. NECK: Normal inspection. No midline spinal tenderness, no step off or crepitus. RESP: No respiratory distress, CTAB. CVS: Regular rate and rhythm, no murmur, no gallop. Back: Normal inspection, no midline tenderness. EXTREMITIES: Normal appearance, full range of motion of upper and lower extremities, no bony tenderness, small abrasion over right knee and linear abrasion over the right whitney. Small abrasion over the left whtiney. 2+ radial and DP pulses. NEURO: Alert and answering questions appropriately. PSYCH: Normal affect. Const Vital Signs: 05/12/25 14:44 Temperature 97.1 F L Temperature Source Temporal Pulse Rate 107 H Respiratory Rate 14 Blood Pressure 144/80 H Blood Pressure Mean 101 Pulse Ox 98 Oxygen Delivery Method Room Air <Dr. Yony Varner MD - Last Filed: 05/12/25 16:22> Physical Exam Const Vital Signs: 05/12/25 14:44 Temperature 97.1 F L Temperature Source Temporal Pulse Rate 107 H Respiratory Rate 14 Blood Pressure 144/80 H Blood Pressure Mean 101 Pulse Ox 98 Oxygen Delivery Method Room Air PROC <LILIYA Jo - Last Filed: 05/12/25 16:16> Procedures Lacerations 6 cm left scalp laceration: Length: 6 cm Depth: Through the dermis and the posterior portion of the wound was down to the b Shape: Linear Prep: Sterile Conditions Laceration repair: Irrigated, Lidocaine, Local and Wound explored Irrigated (ml): 500 Suture Information: Ethilon and 5-0 Comment: I placed 5 simple sutures of 5 the left long and along the forehead and then 5 suzanne along the scalp portion. [facility] <LILIYA Jo - Last Filed: 05/12/25 16:16> [facility] Narrative Medical decision making narrative: Differential includes but not limited to closed head injury, skull fracture, intracranial hemorrhage 79-year-old female had a mechanical fall with closed head injury and sustained a left facial and scalp laceration on the trash can. No LOC. No blood thinners. She is awake alert no distress. Vital stable. GCS 15. There is a laceration on the left forehead extending onto the left temporal scalp. There is no signs of basilar skull fracture. Neurologically intact. She has minor abrasions over both anterior shins but no bony tenderness or indication for x-rays. Due to her age CT scans of the head and neck were obtained and are negative. I repaired the wound?see procedure note. She was given a tetanus update, lower extremity abrasions were cleansed and dressed with bacitracin. I discussed head injury return precautions and she was discharged in stable condition. Radiography Diagnostic Testing: Clinical Impression(s) from Imaging Studies Brain CT 05/12/25 15:14 IMPRESSION: CHRONIC CHANGES. NO ACUTE FINDINGS. Reading Location: [id number] Cervical Spine CT 05/12/25 15:14 IMPRESSION: Multilevel disc space narrowing and spondylosis with the bilateral neural foraminal stenosis as discussed. No fracture seen. Reading Location: [id number] <Dr. Yony Varner MD - Last Filed: 05/12/25 16:22> [facility] Radiography Diagnostic Testing: Clinical Impression(s) from Imaging Studies Brain CT 05/12/25 15:14 IMPRESSION: CHRONIC CHANGES. NO ACUTE FINDINGS. Reading Location: [id number] Cervical Spine CT 05/12/25 15:14 IMPRESSION: Multilevel disc space narrowing and spondylosis with the bilateral neural foraminal stenosis as discussed. No fracture seen. Reading Location: [facility] Treatment and Re-Evaluation Narrative: I have personally performed a face to face assessment of the patient and have reviewed the YESSICA Note. I performed a substantive portion of the visit including all aspects of the following. My parada findings include: History is accidental injury to the scalp and abrasions to both knees and lower legs due to stumbling when cleaning out her garbage can. Denies headache, loss of consciousness, anticoagulation. She takes aspirin every day. Exam is 6 cm full-thickness down to the periosteum scalp laceration frontal including the forehead but not down to the eyebrow. Fairly curvilinear. No clear contamination to some dried blood no active bleeding. Abrasions on both knees and lower legs without bony tenderness or limited range of motion or weightbearing. GCS [address] head images I reviewed as well as report which I agree with, it is negative for anything acute. Laceration was repaired with combination of suzanne in the hairline and sutures on the face. Discussed with patient with regards to timing for suture removal and care at home she is comfortable with that plan. Other additions or changes: [None] Discharge Plan Triage Chief Complaint: Laceration ED Midlevel Provider: Faith Jean ED Provider: Yony Varner Dx/Rx/DC Orders Clinical Impression: Closed head injury, Laceration of scalp, Abrasion of anterior right lower leg, Abrasion of anterior left lower leg Instructions: ED Head Injury (Adult), ED Laceration Scalp Stitches or Suzanne Prescriptions: No Action celecoxib [Celebrex] 200 mg capsule 250 mg PO DAILY Patient Comments: aspirin 81 mg tablet,chewable 81 mg PO DAILY Patient Comments: valsartan 160 mg tablet 160 mg PO DAILY Patient Comments: cholecalciferol (vitamin D3) [Vitamin D3] 1,000 unit capsule 1,000 unit PO DAILY Patient Comments: omeprazole magnesium [Prilosec OTC] 20 mg tablet,delayed release (DR/EC) 20 mg PO DAILY Patient Comments: glucosamine jarvis 2KCl-chondroit 1 EACH capsule 1 ea PO DAILY oxycodone-acetaminophen 1 TABLET tablet 1 - 2 tab PO Q4H PRN PRN (Reason: Pain) Qty: 15 0RF metoclopramide HCl [Reglan] 5 mg tablet 5 mg PO Q8H PRN PRN (Reason: nausea and vomiting) Qty: 10 0RF meloxicam 7.5 mg tablet 7.5 mg PO DAILY Qty: 14 0RF Primary Care Provider: Bautista [place] NP Referrals: Arden Cee CLINICAL ACADEMIC ALLERGIST, CLINICAL ACADEMIC ALLERGIST-C [Non-Staff] - Activity Restrictions/Additional Instructions: The CT scans of your head and neck showed no broken bones or internal bleeding. Take Tylenol as needed for headache. If you feel like headache is severe you start vomiting come back to the emergency room. I placed 5 suzanne and 5 stitches that need removed in about 5 to 7 days. Print Language: Persian Disposition Disposition: Home, Self Care
--- NOTE | 2025-05-12 15:14 | CT_ITS ---
PROCEDURE: SPINE CERVICAL WITHOUT CONTRAS 05/12/2025 REASON FOR EXAM: FALL TECHNIQUE: SPINE CERVICAL WITHOUT CONTRAS Coronal and Sagittal reconstruction series were provided. One or more dose reduction techniques were used (e.g., Automated exposure control, adjustment of the mA and/or kV according to patient size, use of iterative reconstruction technique. RADIATION DOSE SUMMARY: CTDlvol: 18.55 mGy DLP: 302.2 mGycm COMPARISON: None FINDINGS: Alignment: Straightening of the normal cervical lordosis. Vertebrae: Vertebral heights are well-maintained. Soft Tissues: Unremarkable Other: C1-2: Degenerative changes of the atlantoaxial joint. C2-3: Unremarkable C3-4: Minimal anterior listhesis of C3 on C4. Facet joint osteoarthritis and hypertrophy with uncovertebral arthrosis worse on the left side causing bilateral neural foraminal stenosis worse on the left. C4-5: Minimal disc space narrowing. Facet joint osteoarthritis and hypertrophy. Uncovertebral arthrosis. Bilateral neural foraminal stenosis. C5-6: Marked degree of disc space narrowing. Spondylosis. Uncovertebral arthrosis. Moderate degree of bilateral neural foraminal stenosis. C6-7: Moderate degree of disc space narrowing. Facet joint osteoarthritis. No significant stenosis seen. C7-T1: Disc space narrowing. CT/Spine Cervical without Contras IMPRESSION: Multilevel disc space narrowing and spondylosis with the bilateral neural santino inal stenosis as discussed. No fracture seen. Reading Location: [id number]
--- NOTE | 2025-05-12 15:14 | CT_ITS ---
PROCEDURE: BRAIN/HEAD WITHOUT CONTRAST 05/12/2025 REASON FOR EXAM: HEAD INJURY TECHNIQUE: BRAIN/HEAD WITHOUT CONTRAST Coronal and Sagittal reconstruction series were provided. One or more dose reduction techniques were used (e.g., Automated exposure control, adjustment of the mA and/or kV according to patient size, use of iterative reconstruction technique. RADIATION DOSE SUMMARY: CTDlvol: 44.99 mGy DLP: 762.36 mGycm COMPARISON: Prior study dated May 31, 2024. FINDINGS: Brain: Within normal limits for age CSF Spaces: Mild generalized cerebral atrophy Sinuses/Mastoids: Clear at visualized levels Bones: No fracture CT/Brain/Head without Contrast IMPRESSION: CHRONIC CHANGES. NO ACUTE FINDINGS. Reading Location: [id number]
[2025-05-12] MEDS: Lidocaine 1% (20 ml mdv) 20 ML Vial INFILT (15:33)
[2025-05-12 16:20] VITALS: BP 115/76; PULSE 85; RESP 18; TEMP 37; O2SAT 99
== END 2025-05-12 16:23 | disposition home or self-care (01) ==
PROVIDERS: Emergency Provider Emergency Medicine; PCP Nurse Practitioner Primary Care; Visit Provider Emergency Medicine
DX: S09.90XA Unspecified injury of head, initial encounter (principal); S01.01XA Laceration without foreign body of scalp, initial encounter; S80.811A Abrasion, right lower leg, initial encounter; S80.812A Abrasion, left lower leg, initial encounter; Z79.82 Long term (current) use of aspirin; F17.210 Nicotine dependence, cigarettes, uncomplicated; W26.8XXA Contact with other sharp object(s), not elsewhere classified, initial encounter; F17.290 Nicotine dependence, other tobacco product, uncomplicated; Z23 Encounter for immunization
CPT/HCPCS: 12002; 70450; 72125; 90471; 90715; 99283; A4216

== ENCOUNTER 2025-05-18 13:27 | Emergency (ER) | payer MEDICARE, OTHER, SELFPAY ==
[2025-05-18 13:28] VITALS: BP 124/86; PULSE 122; RESP 17; TEMP 36.6; O2SAT 97
--- NOTE | 2025-05-18 14:00 | RAD_ITS ---
PROCEDURE: CHEST 1 VIEW (PORTABLE) 05/18/2025 REASON FOR EXAM: CHEST PAIN TECHNIQUE: Frontal view of the chest. COMPARISON: 05/31/2024 FINDINGS: Hardware: EKG leads overlie the chest. Surgical hardware in the glenoid free of complication Heart: The heart size is normal. Lungs: The lungs are clear. Bones: Degenerative changes are identified within the thoracic spine. Other: RAD/Chest 1 View (Portable) IMPRESSION: No acute pulmonary process Reading Location: [id number]
--- NOTE | 2025-05-18 14:00 | EKG12_ITS ---
Test Reason : CP Blood Pressure : */* mmHG Vent. Rate : 106 BPM Atrial Rate : 106 BPM P-R Int : 194 ms QRS Dur : 80 ms QT Int : 312 ms P-R-T Axes : 37 -5 8 degrees QTcB Int : 414 ms Sinus tachycardia with Blocked Premature atrial complexes Inferior infarct , age undetermined Abnormal ECG Confirmed by SUKI BOURGEOIS ([id number]), slot editor RASHEED KEITH ([id number]) on 05/19/2025 1:49:51 PM Referred By: AR/ES Confirmed By: SUKI BOURGEOIS
[2025-05-18 14:24] LABS: Hematocrit 42.0 % (37-47); Hemoglobin 13.9 g/dL (12.0-15.0); Immature Granulocytes Count 0.010 X10^3/uL (0.0-0.0); Mean Corp Hgb Conc 33.1 g/dL (32-36); Mean Corpuscular Volume 91.5 fL (81-99); Mean Platelet Vol. 11.5 fl (6.2-12.0); NRBC Flagged by Analyzer 0 % (0-5); Platelet Count 224 K/mm3 (150-450); RBC Distribution Width CV 13.3 % (11.6-14.6); RBC Distribution Width SD 44.9 fl (35.1-43.9); Red Blood Count 4.59 M/mm3 (4.2-5.4); White Blood Count 6.5 K/mm3 (4.4-11.0)
[2025-05-18 14:27] VITALS: BP 119/78; PULSE 91; RESP 16
--- NOTE | 2025-05-18 14:29 | ED.VIS.CHEST ---
HPI History of Present Illness Chief Complaint: Chest Pain Narrative Narrative: Chief complaint and HPI: Chest pain. 79-year-old female with past medical history of osteoarthritis, GERD, HTN, social tobacco abuse presents for evaluation of left-sided chest pain. Patient states several days ago she had a mechanical fall and when she tripped and fell through a trash can while cleaning it out. She was seen in our emergency department in which she had a CT of the head and neck which were negative. Her tetanus was updated and she had a laceration repaired. Patient states since the fall she has been having intermittent left-sided chest pain. Describes it as sharp and located just beneath her left breast. Worse when she takes a deep breath. States she periodically endorses palpitations. States the episodes do not last long. Currently denies any chest pain. Denies any fever, chills, nausea, vomiting, abdominal pain. Review of systems: See HPI Medications: As listed on the chart Allergies: As listed on the chart PFSH: Per chart Vital signs: As listed on the chart. Reviewed. Physical exam: Gen: A&O x3, NAD Head: Normocephalic, atraumatic other than repaired laceration Eyes: No sclera icterus, conjunctiva clear, PERRL ENT: Moist mucous membranes Neck: Trachea midline, No JVD, full range of motion CV: Tachycardic, regular rhythm, no murmurs, no peripheral edema, no obvious signs of external trauma, chest wall nontender to palpation Resp: Lungs CTA BL, no w/r/c GI: Abd soft, non-distended, non-tender, no r/r/g Musc: Full ROM, no deformity Skin: Warm, dry Neuro: Alert, oriented, grossly intact, sensation intact Psych: Cooperative, appropriate mood and affect PFS PFSH Medical History no medical history Home Medications ?Medication ?Instructions ?Recorded ?Last Taken ?Type aspirin 81 mg chewable tablet 81 mg PO DAILY 08/24/16 Unknown History celecoxib 200 mg capsule (Celebrex) 250 mg PO DAILY 08/24/16 Unknown History cholecalciferol (vitamin D3) 25 1,000 unit PO DAILY 08/24/16 Unknown History mcg (1,000 unit) capsule (Vitamin D3) glucosamine sulf dipotassium Cl 1 ea PO DAILY 08/24/16 Unknown History 250 mg-chondroitin sulf 200 mg capsule omeprazole magnesium 20 mg 20 mg PO DAILY 08/24/16 Unknown History tablet,delayed release (Prilosec OTC) oxycodone-acetaminophen 5 mg-325 1 - 2 tab PO Q4H PRN PRN Pain #15 08/24/16 Unknown Rx mg tablet tabs valsartan 160 mg tablet 160 mg PO DAILY 08/24/16 Unknown History meloxicam 7.5 mg tablet 7.5 mg PO DAILY #14 tabs 05/31/24 Unknown Rx metoclopramide HCl 5 mg tablet 5 mg PO Q8H PRN PRN nausea and 05/31/24 Unknown Rx (Reglan) vomiting #10 tabs Allergy/AdvReac Type Severity Reaction Status Date / Time No Known Allergies Allergy Verified 05/18/25 13:30 Family History no significant family his Surgical History no surgical history Social History household members: none Smoking Status: Current some day smoker tobacco type: cigarettes and e-cigarettes alcohol intake: current substance use type: does not use EXAM Physical Exam Const Vital Signs: 05/18/25 13:28 05/18/25 13:45 05/18/25 14:04 Temperature 98 F Temperature Source Oral Pulse Rate 122 H Respiratory Rate 17 Respiratory Effort Normal Non-Labored Blood Pressure 124/86 H Blood Pressure Mean 98 Pulse Ox 97 Oxygen Delivery Method Room Air Room Air 05/18/25 14:27 05/18/25 15:00 05/18/25 15:59 Temperature Temperature Source Pulse Rate 91 95 88 Respiratory Rate 16 12 17 Respiratory Effort Blood Pressure 119/78 119/78 143/81 H Blood Pressure Mean 91 91 101 Pulse Ox 98 Oxygen Delivery Method Room Air MDM MDM MDM Narrative Medical decision making narrative: 79-year-old female with past medical history of osteoarthritis, GERD, HTN, social tobacco abuse presents for evaluation of left-sided chest pain. Patient states several days ago she had a mechanical fall and when she tripped and fell through a trash can while cleaning it out. She was seen in our emergency department in which she had a CT of the head and neck which were negative. Her tetanus was updated and she had a laceration repaired. I did review the emergency department note. Patient states since the fall she has been having intermittent left-sided chest pain. Patient currently asymptomatic and in no acute distress. On arrival, she was tachycardic into the 120s. Now tachycardic into the low 100s. EKG was personally reviewed and interpreted by me, ED physician. EKG shows sinus tachycardia with a heart rate of 106. PACs. This was compared to previous EKG in May of last year. Sinus tachycardia with first-degree AV block. Heart rate at that time 107. Differential diagnosis includes but is not limited to myofascial spasm, rib contusion, rib fracture, arrhythmia, electrolyte abnormality, thyroid disease, suspect less likely ACS, PE, NS bolus and aspirin ordered. Cardiac workup ordered. CBC unremarkable without leukocytosis or anemia. BMP unremarkable. Magnesium unremarkable. Thyroid unremarkable. D-dimer negative per age. Troponin unremarkable x 2. At this point in time, no clear etiology for patient's episodic chest pain however given that it occurred after a mechanical fall and is intermittent and sharp in nature, suspect rib contusion versus musculoskeletal pain. On reevaluation, patient's tachycardia has improved with an NS bolus. She is asymptomatic. She is updated of all the results. She has follow-up appointment with her primary care doctor tomorrow. Return precautions discussed. Patient stable to discharge home. Diagnostic: Interpreted by me/EM physician: Chest x-ray without pneumonia, pneumothorax, cardiomegaly, effusion, rib fracture. Radiology in agreement. Impression: 1. Atypical chest pain 2. Suspect left rib contusions 3. Recent mechanical fall Lab Data Labs: Laboratory Results - last 24 hr 05/18/25 05/18/25 13:55 15:47 WBC 6.5 RBC 4.59 Hgb 13.9 Hct 42.0 MCV 91.5 MCH 30.3 MCHC 33.1 RDW Std Deviation 44.9 H RDW Coeff of [place] 13.3 Plt Count 224 MPV 11.5 Immature Gran % (Auto) 0.200 Neut % (Auto) 68.7 Lymph % (Auto) 21.9 [place] % (Auto) 6.9 Eos % (Auto) 1.8 Baso % (Auto) 0.5 Absolute Neuts (auto) 4.5 Absolute Lymphs (auto) 1.43 Nucleated RBC % 0 D-Dimer Quant (PE/DVT) 0.69 H* Sodium 139 Potassium 3.6 Chloride 106 Carbon Dioxide 23.2 Anion Gap 11 BUN 14 Creatinine 0.81 Est GFR (MDRD) Non-Af 75 BUN/Creatinine Ratio 17.6 Glucose 129 H Calcium 10.6 Magnesium 2.0 Troponin T High Sens 8 Troponin T Hi Sens 2 Hr 8 TSH 0.462 Free T4 1.20 Radiography Diagnostic Testing: Clinical Impression(s) from Imaging Studies Chest X-Ray 05/18/25 14:00 IMPRESSION: No acute pulmonary process Reading Location: [facility] Ribs X-Ray 05/18/25 14:30 IMPRESSION: No rib fracture seen. Reading Location: [id number] Discharge Plan Triage Chief Complaint: Chest Pain ED Provider: Edgar Cortez Dx/Rx/DC Orders Prescriptions: No Action celecoxib [Celebrex] 200 mg capsule 250 mg PO DAILY Patient Comments: aspirin 81 mg tablet,chewable 81 mg PO DAILY Patient Comments: valsartan 160 mg tablet 160 mg PO DAILY Patient Comments: cholecalciferol (vitamin D3) [Vitamin D3] 1,000 unit capsule 1,000 unit PO DAILY Patient Comments: omeprazole magnesium [Prilosec OTC] 20 mg tablet,delayed release (DR/EC) 20 mg PO DAILY Patient Comments: glucosamine jarvis 2KCl-chondroit 1 EACH capsule 1 ea PO DAILY oxycodone-acetaminophen 1 TABLET tablet 1 - 2 tab PO Q4H PRN PRN (Reason: Pain) Qty: 15 0RF metoclopramide HCl [Reglan] 5 mg tablet 5 mg PO Q8H PRN PRN (Reason: nausea and vomiting) Qty: 10 0RF meloxicam 7.5 mg tablet 7.5 mg PO DAILY Qty: 14 0RF Primary Care Provider: Bautista [place] NP Referrals: Bautista [place] ELECTRICAL MACHINIST, ELECTRICAL MACHINIST-C [Primary Care Provider] - Print Language: Telugu
--- NOTE | 2025-05-18 14:30 | RAD_ITS ---
PROCEDURE: RIBS UNIL 2V NO CXR 05/18/2025 REASON FOR EXAM: PAIN, FALL TECHNIQUE: RIBS UNIL 2V NO CXR COMPARISON: Prior chest radiograph dated May 31, 2024. FINDINGS: Findings: No rib fracture is seen. No evidence of pneumothorax. The patient is status post bilateral shoulder replacement. Other: RAD/Ribs Unil 2V No CXR IMPRESSION: No rib fracture seen. Reading Location: [id number]
[2025-05-18] MEDS: 0.9% Normal Saline (1000mL) 1,000 ML 1000 ML IV (14:34)
[2025-05-18 14:38] LABS: Anion Gap 11 (5-15); BUN 14 mg/dL (4-19); BUN/Creat Ratio 17.6 RATIO (10-20); Calcium,Total 10.6 mg/dL (7.6-11.0); Carbon Dioxide 23.2 mmol/L (21.0-32.0); Chloride 106 mmol/L (98-108); Glucose 129 mg/dL (70-99); Potassium 3.6 mmol/L (3.3-5.1); Troponin T High Sensitivity 8 ng/L (<=14)
[2025-05-18 14:54] LABS: D-Dimer Quantitative (DVT/PE) 0.69 FEU/ug/m (0.27-0.49)
--- NOTE | 2025-05-18 14:55 | ED.RN ---
Dr. Enrique informed D-Dimer 0.69
[2025-05-18 15:00] VITALS: BP 119/78; PULSE 95; RESP 12
[2025-05-18 15:12] LABS: Magnesium 2.0 mg/dL (1.5-2.2)
[2025-05-18 15:59] VITALS: BP 143/81; PULSE 88; RESP 17; O2SAT 98
[2025-05-18 16:16] LABS: Troponin T High Sens 2 HR 8 ng/L (<=14)
[2025-05-18 16:50] VITALS: BP 167/93; PULSE 88; RESP 17; TEMP 36.6; O2SAT 98
== END 2025-05-18 16:55 | disposition home or self-care (01) ==
PROVIDERS: Emergency Provider Surgery; PCP Nurse Practitioner Primary Care; Visit Provider Surgery
DX: R07.89 Other chest pain (principal); I44.0 Atrioventricular block, first degree; I10 Essential (primary) hypertension; F17.210 Nicotine dependence, cigarettes, uncomplicated; K21.9 Gastro-esophageal reflux disease without esophagitis; Z23 Encounter for immunization; F17.290 Nicotine dependence, other tobacco product, uncomplicated; Z91.81 History of falling
CPT/HCPCS: 71045; 71100; 80048; 83735; 84439; 84443; 84484; 85025; 85379; 93005; 96360; 99284; A4216